=== PATIENT | female | born 1970 | race Caucasian/White ===

== ENCOUNTER → 2017-05-30 | Outpatient (CLI) | payer BC ==
[2017-05-30 09:27] LABS: Basophils # (A) 0.1 k/uL (0-0.2); Basophils % (A) 1 %; Eosinophils # (A) 0.4 k/uL (0-0.7); Eosinophils % (A) 6 %; HCT 37.2 % (34.0-46.0); HGB 12.5 gm/dL (11.4-16.0); Lymphocytes # (A) 1.6 k/uL (1.0-4.8); Lymphocytes % (A) 24 %; MCH 32.5 pg (25.0-35.0); MCHC 33.6 g/dL (31.0-37.0); Monocytes # (A) 0.4 k/uL (0-1.0); Monocytes % (A) 6 %; Neutrophils # (A) 4.2 k/uL (1.3-7.7); Neutrophils % (A) 62 %; Platelet Count 333 k/uL (150-450); RBC 3.84 m/uL (3.80-5.40); RDW 12.5 % (11.5-15.5); WBC 6.8 k/uL (3.8-10.6)
[2017-05-30 09:36] LABS: ALT 19 U/L (9-52); AST 22 U/L (14-36); Albumin 4.1 g/dL (3.5-5.0); Alkaline Phosphatase 96 U/L (38-126); Anion Gap 8 mmol/L; Blood Urea Nitrogen 10 mg/dL (7-17); Calcium 9.2 mg/dL (8.4-10.2); Carbon Dioxide 28 mmol/L (22-30); Chloride 106 mmol/L (98-107); Cholesterol 233 mg/dL (<200); Glucose 84 mg/dL (74-99); HDL Cholesterol 50 mg/dL (40-60); LDL Cholesterol,Calculated 145 mg/dL (0-99); Potassium 4.2 mmol/L (3.5-5.1); Sodium 142 mmol/L (137-145); Total Bilirubin 0.5 mg/dL (0.2-1.3); Total Protein 6.8 g/dL (6.3-8.2); Triglycerides 191 mg/dL (<150)
[2017-05-30 09:51] LABS: T4, Free (Free Thyroxine) 1.38 ng/dL (0.78-2.19)
== END | disposition home or self-care (01) ==
LOC: LABWHC1 08:50
PROVIDERS: ATTEND Family Medicine
DX: Z00.00 Encounter for general adult medical examination without abnormal findings (principal)
CPT/HCPCS: 36415; 80053; 80061; 82306; 84439; 84443; 85025

== ENCOUNTER → 2017-08-09 | Outpatient (CLI) | payer BC ==
[2017-08-09 10:23] LABS: Basophils # (A) 0.1 k/uL (0-0.2); Basophils % (A) 1 %; Eosinophils # (A) 0.3 k/uL (0-0.7); Eosinophils % (A) 5 %; HGB 11.9 gm/dL (11.4-16.0); Lymphocytes # (A) 1.5 k/uL (1.0-4.8); Lymphocytes % (A) 27 %; MCH 31.6 pg (25.0-35.0); MCHC 33.1 g/dL (31.0-37.0); MCV 95.5 fL (80.0-100.0); Mean Platelet Volume 6.7; Monocytes # (A) 0.3 k/uL (0-1.0); Monocytes % (A) 6 %; Neutrophils # (A) 3.1 k/uL (1.3-7.7); Neutrophils % (A) 58 %; Platelet Count 364 k/uL (150-450); RBC 3.76 m/uL (3.80-5.40); RDW 13.1 % (11.5-15.5); WBC 5.4 k/uL (3.8-10.6)
[2017-08-09 10:52] LABS: ALT 18 U/L (9-52); AST 26 U/L (14-36); Cholesterol 238 mg/dL (<200); HDL Cholesterol 58 mg/dL (40-60); LDL Cholesterol,Calculated 153 mg/dL (0-99); Triglycerides 134 mg/dL (<150)
== END | disposition home or self-care (01) ==
LOC: LABWHC1 09:30
PROVIDERS: ATTEND Physician Assistant Medical
DX: L70.0 Acne vulgaris (principal); D23.9 Other benign neoplasm of skin, unspecified; L30.8 Other specified dermatitis
CPT/HCPCS: 36415; 80061; 83001; 83002; 84450; 84460; 85025

== ENCOUNTER → 2017-09-11 | Outpatient (CLI) | payer BC ==
[2017-09-11 09:48] LABS: HCG,Quantitative Serum <2.4 mIU/mL
[2017-09-11 10:03] LABS: ALT 23 U/L (9-52); AST 24 U/L (14-36); Cholesterol 265 mg/dL (<200)
[2017-09-11 11:03] LABS: Triglycerides 195 mg/dL (<150)
== END | disposition home or self-care (01) ==
LOC: LABWHC1 08:42
PROVIDERS: ATTEND Physician Assistant Medical
DX: L70.0 Acne vulgaris (principal)
CPT/HCPCS: 36415; 82465; 84450; 84460; 84478; 84702

== ENCOUNTER → 2017-10-22 | Outpatient (CLI) | payer BC ==
--- NOTE | 2017-10-22 16:50 | BD ---
EXAMINATION TYPE: Axial Bone Density DATE OF EXAM: 10/22/2017 COMPARISON: NONE CLINICAL HISTORY: 47-year-old male osteoporosis screening Height: 5 FT 6 1/2 IN Weight: 185 FRAX RISK QUESTIONS: History of Fracture in Adulthood: YES Secondary Osteoporosis: 3. Menopause before 45: TOTAL HYST AGE 27 Current Tobacco Use: YES RISK FACTORS HISTORY OF: Family History of Osteoporosis: MOTHER Active: YES Postmenopausal woman: TOTAL HYST AGE 27 If Premenopausal, do you have irregular periods: Take estrogen and/or progesterone medications: TOOK FROM AGE 27 -45 How lon YEARS MEDICATIONS: Thyroid Medications: YES Which medication: LEVOTHYROXINE How Lon YEARS Additional Medications: PROZAC,LEVOTHYROXINE, XANAX, ACCUTANE Additional History: EXAM MEASUREMENTS: Bone mineral densitometry was performed using the [employer]. Bone mineral density as measured about the Lumbar spine is: ----- L1-L4(G/cm2): 1.106 T Score Values are as follows: ----- L2: -1.3 ----- L3: -0.4 ----- L4: -0.1 ----- L1-L4: -0.6 [facility] Bone mineral density about the R hip (g/cm2): 0.998 Bone mineral density about the L hip (g/cm2): 1.029 T Score values are as follows: -----R Neck: -0.3 -----L Neck: -0.1 -----R Total: 0.1 -----L Total: 0.4 [facility] IMPRESSION: Normal (Values between +1 and -1 indicate normal bone mass). Consider repeating this study in 5 year s or sooner if there is some new clinical indication. NOTE: T-SCORE=SD OF THE YOUNG ADULT MEAN.
--- NOTE | 2017-10-24 11:01 | MM ---
Reason for exam: screening (asymptomatic). Last mammogram was performed 2 years and 9 months ago. History: Patient is nulliparous. Took estrogen for 18 years. Physical Findings: A clinical breast exam by your physician is recommended on an annual basis and results should be correlated with mammographic findings. MG Screening Mammo w CAD Bilateral CC and MLO view(s) were taken. Prior study comparison: January 21, 2015, mammogram, performed at [facility]. November 10, 2013, mammogram, performed at [facility]. The breast tissue is almost entirely fat. Finding: There are typically benign diffuse/scattered calcifications in both breasts. No suspicious abnormality. No significant changes in finding since January 21, 2015 and November 10, 2013. ASSESSMENT: Benign, BI-RAD 2 RECOMMENDATION: Routine screening mammogram of both breasts in 1 year.
== END | disposition home or self-care (01) ==
LOC: RADMAMWWP 07:35
PROVIDERS: ATTEND Obstetrics & Gynecology
DX: Z12.31 Encounter for screening mammogram for malignant neoplasm of breast (principal); Z13.820 Encounter for screening for osteoporosis
CPT/HCPCS: 77067; 77080

== ENCOUNTER → 2018-09-02 | Outpatient (CLI) | payer OTHER ==
[2018-09-02 16:08] LABS: T4, Free (Free Thyroxine) 0.6 ng/dL (0.80-1.80)
== END | disposition home or self-care (01) ==
LOC: LABWHC1 10:25
PROVIDERS: ATTEND Internal Medicine
DX: E06.3 Autoimmune thyroiditis (principal)
CPT/HCPCS: 36415; 84439; 84443

== ENCOUNTER 2019-12-10 10:40 | Inpatient (IN) | payer BC, OTHER ==
[2019-12-10] MEDS ORDERED: ALPRAZolam 0.25 MG TAB PO STA (14:01)
[2019-12-10] MEDS ORDERED: IPRATROPIUM-ALBUTEROL 3 ML NEB INHALATION PRN (15:33)
[2019-12-10] MEDS ORDERED: ACETAMINOPHEN TAB 325 MG TAB PO PRN (15:37)
[2019-12-10] MEDS ORDERED: ONDANSETRON 4 MG/2 ML VIAL IVP PRN (15:37)
[2019-12-10] MEDS: IPRATROPIUM-ALBUTEROL 3 ML NEB INHALATION SCH ×2 (15:53→19:54)
[2019-12-10] MEDS ORDERED: SYMBICORT 80-4.5 MCG INHALER INHALATION SCH (16:00)
[2019-12-10 16:38] LABS: Basophils # (A) 0.1 k/uL (0-0.2); Basophils % (A) 1 %; Eosinophils # (A) 0.2 k/uL (0-0.7); Eosinophils % (A) 2 %; HCT 38.4 % (34.0-46.0); HGB 12.3 gm/dL (11.4-16.0); Lymphocytes # (A) 2.8 k/uL (1.0-4.8); Lymphocytes % (A) 37 %; MCH 31.3 pg (25.0-35.0); MCHC 32.1 g/dL (31.0-37.0); MCV 97.3 fL (80.0-100.0); Mean Platelet Volume 6.9; Monocytes # (A) 0.4 k/uL (0-1.0); Monocytes % (A) 5 %; Neutrophils # (A) 3.9 k/uL (1.3-7.7); Neutrophils % (A) 51 %; Platelet Count 354 k/uL (150-450); RBC 3.94 m/uL (3.80-5.40); RDW 12.9 % (11.5-15.5); WBC 7.6 k/uL (3.8-10.6)
[2019-12-10 16:46] LABS: ALT 21 U/L (4-34); AST 32 U/L (14-36); African American GFR (CKD) >90 (>60 ml/min/1.73 sqM); Albumin 4.2 g/dL (3.5-5.0); Alkaline Phosphatase 117 U/L (38-126); Anion Gap 8 mmol/L; Blood Urea Nitrogen 5 mg/dL (7-17); Calcium 9.1 mg/dL (8.4-10.2); Carbon Dioxide 23 mmol/L (22-30); Chloride 104 mmol/L (98-107); Glucose 95 mg/dL (74-99); Non-African American GFR(CKD) >90 (>60 ml/min/1.73 sqM); Potassium 3.7 mmol/L (3.5-5.1); Sodium 135 mmol/L (137-145); Total Bilirubin 0.5 mg/dL (0.2-1.3); Total Protein 6.9 g/dL (6.3-8.2)
--- NOTE | 2019-12-10 16:47 | XR ---
EXAMINATION TYPE: XR chest 2V DATE OF EXAM: 12/10/2019 COMPARISON: NONE HISTORY: Cough and shortness of breath. TECHNIQUE: Frontal and lateral views of the chest are obtained. FINDINGS: There is no focal air space opacity, pleural effusion, or pneumothorax seen. The cardiac silhouette size is within normal limits. The osseous structures are intact. Few air-fluid levels in the visualized anterior bowel loops in the upper to mid abdomen on lateral view, nonspecific finding . IMPRESSION: No acute cardiopulmonary process.
[2019-12-10] MEDS ORDERED: AZITHROMYCIN 500 MG in SODIUM CHLORIDE 0.9% 250 ML IVPB SCH (17:00)
[2019-12-10] MEDS: NICOTINE 14MG/24HR PATCH TRANSDERM SCH (17:03)
[2019-12-10] MEDS: PANTOPRAZOLE 40 MG/10 ML VIAL IVP SCH (17:13)
[2019-12-10] MEDS: SODIUM CHLORIDE 0.9% 1,000 ML IV SCH (17:22)
[2019-12-10] MEDS: INSULIN ASPART (NovoLOG) 100 UNIT/ML VIAL SQ SCH ×2 (17:24→20:50)
[2019-12-10] MEDS: methylPREDNISolone SOD SUCCI 125 MG/2 ML VIAL IV SCH ×2 (18:27→23:42)
[2019-12-10] MEDS ORDERED: RX INFO: IV CONTRAST WAS GIVEN 1 EACH MISC MISCELLANE PRN (19:01)
[2019-12-10] MEDS ORDERED: ALPRAZolam 0.25 MG TAB PO PRN (19:02)
[2019-12-10] MEDS: PIPERACILLIN-TAZOBACTAM 3.375 GM in SODIUM CHLORIDE 0.9% 100 ML IVPB SCH (19:51)
[2019-12-10] MEDS: SYMBICORT 160-4.5 MCG INHALER INHALATION SCH (19:54)
[2019-12-10 20:44] LABS: Glucose,Whole Blood 150 mg/dL (75-99)
--- NOTE | 2019-12-10 21:42 | CT ---
"EXAMINATION TYPE: CT chest w con DATE OF EXAM: 12/10/2019 COMPARISON: Chest x-ray earlier today. HISTORY: dyspnea CT DLP: 490.4 mGycm. Automated Exposure Control for Dose Reduction was Utilized. TECHNIQUE: CT scan of the thorax is performed following with IV Contrast, patient injected with 100 mL of Isovue 300. FINDINGS: LUNGS: There are multifocal areas of groundglass opacity seen bilaterally predominantly in a peripher al distribution from referenced 2.3 cm area anterior left upper lobe axial image 18 and 1.7 cm area o f peripheral right upper lobe axial image 14. Some areas of involvement in the superior aspect of the lingula and right middle lobe are present for reference axial image 33. Findings not well seen on ch est x-ray. No pleural effusion or pneumothorax seen bilaterally. There is no suspicious nodules or ma sses. The tracheobronchial tree is patent. MEDIASTINUM: There are no greater than 1 cm hilar or mediastinal lymph nodes. No cardiomegaly or pe ricardial effusion is seen. OTHER: No additional significant abnormality is seen. IMPRESSION: Multifocal groundglass opacities upper to mid lung bilaterally predominantly peripheral i n distribution worrisome for atypical infection such as covid-19 infection in the current environment . Above results discussed with patient's nurse via telephone at time of dictation. Nurse said patient h ad initial negative study. Consider repeat test due to increased suspicion on CT. A [place] level critical message alert has been initiated for Jayden Louie MD via the [employer] 0 | Critical Results System on 12/10/2019 9:39 PM. This message alert has been sent to Jayden Louie MD via the preferences provided by the clinician for the receipt of Radiology Critical Findings. Mess age ID [id number]."
[2019-12-11] MEDS: PIPERACILLIN-TAZOBACTAM 3.375 GM in SODIUM CHLORIDE 0.9% 100 ML IVPB SCH ×3 (02:23→17:21)
[2019-12-11] MEDS: methylPREDNISolone SOD SUCCI 125 MG/2 ML VIAL IV SCH ×3 (05:46→17:20)
[2019-12-11 07:41] LABS: Glucose,Whole Blood 160 mg/dL (75-99)
[2019-12-11] MEDS: DEXMETHYLPHENIDATE HCL 40 MG PO SCH (08:13)
[2019-12-11] MEDS: lamoTRIgine 100 MG TAB PO SCH (08:18)
[2019-12-11] MEDS: SPIRONOLACTONE 25 MG TAB PO SCH (08:19)
[2019-12-11] MEDS: PANTOPRAZOLE 40 MG/10 ML VIAL IVP SCH (08:19)
[2019-12-11] MEDS: FLUoxetine HCL 20 MG CAP PO SCH (08:19)
[2019-12-11] MEDS: INSULIN ASPART (NovoLOG) 100 UNIT/ML VIAL SQ SCH ×4 (08:20→21:48)
[2019-12-11] MEDS: IPRATROPIUM-ALBUTEROL 3 ML NEB INHALATION SCH ×4 (08:55→21:35)
[2019-12-11] MEDS: SYMBICORT 160-4.5 MCG INHALER INHALATION SCH ×2 (08:55→21:35)
[2019-12-11] MEDS: THYROID, PORK 30 MG TAB PO SCH ×2 (09:22)
[2019-12-11] MEDS: NICOTINE 14MG/24HR PATCH TRANSDERM SCH (09:23)
[2019-12-11 11:31] LABS: Glucose,Whole Blood 142 mg/dL (75-99)
[2019-12-11] MEDS: SODIUM CHLORIDE 0.9% 1,000 ML IV SCH (12:17)
[2019-12-11 16:43] LABS: Glucose,Whole Blood 132 mg/dL (75-99)
[2019-12-11] MEDS ORDERED: AZITHROMYCIN 500 MG TAB PO SCH (17:00)
--- NOTE | 2019-12-11 18:46 | P.CNPUL ---
History of Present Illness Consult date: 12/11/19 Reason for consult: dyspnea, cough Chief complaint: Ongoing shortness of breath with cough for last few days History of present illness: This is a 49-year-old female history of smoking the past patient admitted from primary care office with the increase in respiratory complaint, ongoing cough is present mostly nonproductive, patient has significant history of depression and vitamin D deficiency along with anxiety disorder she cannot recall any coitus exposure however chest x-ray has been unremarkable but her computed tomography scan positive for multifocal areas of groundglass attenuation predominantly in the frontal distribution more on the left side compared to right side, currently patient is being treated with IV steroids breathing treatment and broad-spectrum antibiotics with IV Zosyn infectious disease on consult there is a high suspicion of coronary 19 pneumonia however test results are pending Review of Systems All systems: negative Past Medical History Past Medical History: COPD, Osteoarthritis (OA) Additional Past Medical History / Comment(s): shots in hands for arthritis History of Any Multi-Drug Resistant Organisms: None Reported Past Surgical History: Hysterectomy Additional Past Anesthesia/Blood Transfusion Reaction / Comment(s): got too much anesthetic with surgery once. per pt Past Psychological History: ADD/ADHD, Anxiety, Depression Additional Psychological History / Comment(s): ? bipolar sees counselor Smoking Status: Current every day smoker Past Alcohol Use History: Rare Past Drug Use History: None Reported - Past Family History Mother Family Medical History: Cancer, CVA/TIA, Hypertension Additional Family Medical History / Comment(s): open heart Brother(s) Family Medical History: Cancer Additional Family Medical History / Comment(s): lung with brain mets in remission Father Family Medical History: Congestive Heart Failure (CHF), COPD Additional Family Medical History / Comment(s): emphysema Medications and Allergies Home Medications Medication Instructions Recorded Confirmed Type ALPRAZolam [Xanax] 0.25 mg PO DAILY PRN 12/10/19 12/10/19 History Cholecalciferol [Vitamin D3 (25 1,000 unit PO DAILY 12/10/19 12/10/19 History Mcg = 1000 Iu)] Dexmethylphenidate HCl 40 mg PO DAILY 12/10/19 12/10/19 History [Dexmethylphenidate HCl ER] FLUoxetine HCL [Sarafem] 60 mg PO DAILY 12/10/19 12/10/19 History Spironolactone 25 mg PO DAILY 12/10/19 12/10/19 History Thyroid,Pork [[place] Thyroid] 15 mg PO DAILY 12/10/19 12/10/19 History Thyroid,Pork [[place] Thyroid] 60 mg PO DAILY 12/10/19 12/10/19 History Vitamin E 1,000 unit PO DAILY 12/10/19 12/10/19 History lamoTRIgine 200 mg PO DAILY 12/10/19 12/10/19 History Allergies Allergy/AdvReac Type Severity Reaction Status Date / Time No Known Allergies Allergy Verified 12/10/19 15:59 Physical Exam Vitals: Vital Signs Temp Pulse Pulse Resp BP Pulse Ox 12/11/19 16:32 77 12/11/19 16:23 77 12/11/19 14:48 98.4 F 87 18 95/59 93 L 12/11/19 12:47 68 12/11/19 12:34 72 12/11/19 09:13 68 12/11/19 08:56 68 12/11/19 08:00 16 12/11/19 07:00 97.9 F 63 16 109/74 96 12/11/19 01:00 97.7 F 73 20 104/64 93 L 12/10/19 20:12 98.4 F 84 16 105/70 95 12/10/19 20:05 78 16 12/10/19 19:54 80 16 Intake and Output 12/11/19 12/11/19 12/11/19 06:59 14:59 22:59 Other: Voiding Method Toilet Toilet # Voids 1 2 - Constitutional General appearance: cooperative, mild distress - EENT Ears: bilateral: normal - Neck Neck: normal ROM Carotids: bilateral: upstroke normal - Respiratory Respiratory: bilateral: CTA - Cardiovascular Rhythm: regular Heart sounds: normal: S1, S2 - Gastrointestinal General gastrointestinal: decreased bowel sounds - Neurologic Neurologic: CNII-XII intact - Musculoskeletal Musculoskeletal: gait normal, generalized weakness, strength equal bilaterally - Psychiatric Psychiatric: A&O x's 3, appropriate affect, intact judgment & insight Results - Laboratory Findings CBC and BMP: 12/10/19 16:15 12/10/19 16:15 Abnormal lab findings: Abnormal Labs 12/10/19 12/10/19 12/11/19 16:15 20:43 07:38 Sodium 135 L BUN 5 L POC Glucose (mg/dL) 150 H 160 H 12/11/19 12/11/19 11:28 16:41 Sodium BUN POC Glucose (mg/dL) 142 H 132 H - Diagnostic Findings Chest x-ray: report reviewed, image reviewed CT scan - chest: report reviewed, image reviewed Assessment and Plan Assessment: Bilateral interstitial pneumonia versus atypical pneumonia Covid 19 pneumonia cannot be excluded Generalized anxiety disorder Hypothyroidism Plan: Continue antibiotics Continue breathing treatment IV steroids Follow-up on Covid 19 test results ID consultation Follow and observe closely with respiratory and droplet precautions Time with Patient: Greater than 30
[2019-12-11 21:33] LABS: Glucose,Whole Blood 140 mg/dL (75-99)
--- NOTE | 2019-12-11 22:54 | PN ---
PROGRESS NOTE This is a 49-year-old white female with shortness of breath, cough, failed two antibiotics as an outpatient and multiple steroids. CT scan shows interstitial lung disease of unclear etiology. IV Zosyn and steroids are being given. She had a recent COVID test which was negative. Another COVID test is pending. Past medical history is COPD, osteoarthritis, hysterectomy, ADD, anxiety, depression. Current everyday smoker. Lungs show wheezes x4. Scattered rhonchi. CARDIOVASCULAR: S1, S2. Abdomen is soft. PSYCH: Fair mood and affect. VITAL SIGNS: Blood pressure 100 to 110 over 60s to 70s. O2 is 93 to 96, temperature 97 to 99, pulse 60 to 72. ASSESSMENT: 1. Community-acquired pneumonia; failed outpatient antibiotics x2. Rule out COVID. 2. Chronic obstructive pulmonary disease exacerbation. 3. Long-standing history of smoking. 4. Generalized anxiety. 5. Hypothyroidism. Wait for COVID test. Continue with Zosyn, steroids. MMODL / IJN: [id number] /
[2019-12-12] MEDS: methylPREDNISolone SOD SUCCI 125 MG/2 ML VIAL IV SCH ×3 (01:04→11:47)
[2019-12-12] MEDS: PIPERACILLIN-TAZOBACTAM 3.375 GM in SODIUM CHLORIDE 0.9% 100 ML IVPB SCH ×2 (01:05→08:16)
[2019-12-12 06:52] LABS: Glucose,Whole Blood 154 mg/dL (75-99)
[2019-12-12] MEDS ORDERED: PANTOPRAZOLE 40 MG TABLET PO SCH (07:30)
[2019-12-12] MEDS: SPIRONOLACTONE 25 MG TAB PO SCH (07:40)
[2019-12-12] MEDS: lamoTRIgine 100 MG TAB PO SCH (07:40)
[2019-12-12] MEDS: FLUoxetine HCL 20 MG CAP PO SCH (07:40)
[2019-12-12] MEDS: DEXMETHYLPHENIDATE HCL 40 MG PO SCH (07:41)
[2019-12-12] MEDS: INSULIN ASPART (NovoLOG) 100 UNIT/ML VIAL SQ SCH ×2 (07:41→11:47)
[2019-12-12] MEDS: THYROID, PORK 30 MG TAB PO SCH ×2 (07:42)
[2019-12-12] MEDS: NICOTINE 14MG/24HR PATCH TRANSDERM SCH (07:44)
[2019-12-12] MEDS: SODIUM CHLORIDE 0.9% 1,000 ML IV SCH (08:16)
[2019-12-12] MEDS: IPRATROPIUM-ALBUTEROL 3 ML NEB INHALATION SCH ×2 (08:32→12:12)
[2019-12-12] MEDS: SYMBICORT 160-4.5 MCG INHALER INHALATION SCH (08:32)
[2019-12-12] MEDS ORDERED: LEVOFLOXACIN 750 MG TAB PO SCH (09:00)
[2019-12-12 10:10] LABS: Basophils % (A) 0 %; Eosinophils % (A) 0 %; HCT 35.3 % (34.0-46.0); HGB 11.2 gm/dL (11.4-16.0); Lymphocytes # (A) 0.7 k/uL (1.0-4.8); Lymphocytes % (A) 3 %; MCH 31.5 pg (25.0-35.0); MCHC 31.8 g/dL (31.0-37.0); MCV 99.2 fL (80.0-100.0); Mean Platelet Volume 7.9; Monocytes # (A) 0.6 k/uL (0-1.0); Monocytes % (A) 3 %; Neutrophils # (A) 18.3 k/uL (1.3-7.7); Neutrophils % (A) 93 %; Platelet Count 325 k/uL (150-450); RBC 3.56 m/uL (3.80-5.40); RDW 13.3 % (11.5-15.5); WBC 19.7 k/uL (3.8-10.6)
[2019-12-12 10:17] LABS: ALT 15 U/L (4-34); AST 21 U/L (14-36); African American GFR (CKD) >90 (>60 ml/min/1.73 sqM); Albumin 3.6 g/dL (3.5-5.0); Alkaline Phosphatase 98 U/L (38-126); Anion Gap 7 mmol/L; Blood Urea Nitrogen 12 mg/dL (7-17); C Reactive Protein 13.4 mg/L (<10.0); Calcium 8.8 mg/dL (8.4-10.2); Carbon Dioxide 22 mmol/L (22-30); Chloride 110 mmol/L (98-107); Glucose 115 mg/dL (74-99); Non-African American GFR(CKD) >90 (>60 ml/min/1.73 sqM); Sodium 139 mmol/L (137-145); Total Bilirubin 0.3 mg/dL (0.2-1.3); Total Protein 6.1 g/dL (6.3-8.2)
--- NOTE | 2019-12-12 10:59 | P.PN ---
Subjective Progress Note Date: 12/12/19 Principal diagnosis: Bilateral interstitial pneumonia versus atypical pneumonia Covid 19 pneumonia cannot be excluded Generalized anxiety disorder Hypothyroidism 12/12/2019, patient seen eval examined during on's labs reviewed medications reviewed white cell count is up due to IV steroids respiratory status is stable patient room air breathing comfortably intermittent cough is present, This is a 49-year-old female history of smoking the past patient admitted from primary care office with the increase in respiratory complaint, ongoing cough is present mostly nonproductive, patient has significant history of depression and vitamin D deficiency along with anxiety disorder she cannot recall any coitus exposure however chest x-ray has been unremarkable but her computed tomography scan positive for multifocal areas of groundglass attenuation predominantly in the frontal distribution more on the left side compared to right side, currently patient is being treated with IV steroids breathing treatment and broad-spectrum antibiotics with IV Zosyn infectious disease on consult there is a high suspicion of coronary 19 pneumonia however test results are pending Objective - Vital Signs Vital signs: Vital Signs Temp 98.3 F 12/12/19 07:00 Pulse 84 12/12/19 08:48 Resp 17 12/12/19 08:00 BP 101/59 12/12/19 07:00 Pulse Ox 93 L 12/12/19 07:00 Intake & Output 12/11/19 12/12/19 12/12/19 18:59 06:59 18:59 Intake Total 100 Balance 100 Intake: Oral 100 Other: Voiding Method Toilet Toilet Toilet # Voids 2 1 - Exam - Constitutional General appearance: cooperative, mild distress - EENT Ears: bilateral: normal - Neck Neck: normal ROM Carotids: bilateral: upstroke normal - Respiratory Respiratory: bilateral: CTA - Cardiovascular Rhythm: regular Heart sounds: normal: S1, S2 - Gastrointestinal General gastrointestinal: decreased bowel sounds - Neurologic Neurologic: CNII-XII intact - Musculoskeletal Musculoskeletal: gait normal, generalized weakness, strength equal bilaterally - Psychiatric Psychiatric: A&O x's 3, appropriate affect, intact judgment & insight - Labs CBC & Chem 7: 12/12/19 07:40 12/12/19 07:40 Labs: Abnormal Lab Results - Last 24 Hours (Table) 12/11/19 12/11/19 12/11/19 Range/Units 11:28 16:41 21:30 WBC (3.8-10.6) k/uL RBC (3.80-5.40) m/uL Hgb (11.4-16.0) gm/dL Neutrophils # (1.3-7.7) k/uL Lymphocytes # (1.0-4.8) k/uL Chloride (98-107) mmol/L Glucose (74-99) mg/dL POC Glucose (mg/dL) 142 H 132 H 140 H (75-99) mg/dL C-Reactive Protein (<10.0) mg/L Total Protein (6.3-8.2) g/dL 12/12/19 12/12/19 12/12/19 Range/Units 06:50 07:40 07:40 WBC 19.7 H (3.8-10.6) k/uL RBC 3.56 L (3.80-5.40) m/uL Hgb 11.2 L (11.4-16.0) gm/dL Neutrophils # 18.3 H (1.3-7.7) k/uL Lymphocytes # 0.7 L (1.0-4.8) k/uL Chloride 110 H (98-107) mmol/L Glucose 115 H (74-99) mg/dL POC Glucose (mg/dL) 154 H (75-99) mg/dL C-Reactive Protein 13.4 H (<10.0) mg/L Total Protein 6.1 L (6.3-8.2) g/dL Assessment and Plan Assessment: Bilateral interstitial pneumonia versus atypical pneumonia Covid 19 pneumonia test is negative Generalized anxiety disorder Hypothyroidism Smoking and nicotine use Plan: Continue antibiotics, patient can be discharged home on oral Levaquin with tapering Medrol Dosepak Continue breathing treatment Follow and observe closely with respiratory and droplet precautions Smoking cessation counseling advised at length Time with Patient: Greater than 30
[2019-12-12 11:21] LABS: Glucose,Whole Blood 149 mg/dL (75-99)
[2019-12-12 13:34] VITALS: BP 93/58; PULSE 90; RESP 16; TEMP 98.2
--- NOTE | 2019-12-12 15:32 | P.CONS ---
History of Present Illness - Reason for Consult Consult date: 12/11/19 Pneumonia Requesting physician: Jayden Louie - Chief Complaint Shortness of breath and cough x 3 weeks - History of Present Illness Patient is 49-year-old female with a past medical history significant for COPD, seemed to have problem with cough that has been going on for almost 3 weeks now the patient described her comfortable mostly dry in nature moderate in tensity with occasional sputum production which is mostly whitish denies any hemoptysis or any pleuritic chest pain patient denies high-grade fever however did have some chills and no URI symptoms no nausea no vomiting no abdominal pain no diarrhea patient has been treated with initially with an oral amoxicillin without any improvement subsequently has been treated with Augmentin and a steroid pack did not have any improvement subsequently the patient has been admitted directly to the hospital concern for possible Covid 19 infection, patient of presentation hospital was afebrile and no fever has been recorded in the hospital, the patient did have a normal white count with no lymphopenia live r enzymes are normal, patient did have a chest x-ray that was reported negative for any acute infiltrate, patient did have CT of the chest which was suggestive of multifocal groundglass opacities upper to mid lung bilaterally predominantly peripheral with concern for atypical infection, infectious disease was consulted for further management Review of Systems Positive point has been mentioned in the HPI rest of the systems are negative Past Medical History Past Medical History: COPD, Osteoarthritis (OA) Additional Past Medical History / Comment(s): shots in hands for arthritis History of Any Multi-Drug Resistant Organisms: None Reported Past Surgical History: Hysterectomy Additional Past Anesthesia/Blood Transfusion Reaction / Comm: got too much anesthetic with surgery once. per pt Past Psychological History: ADD/ADHD, Anxiety, Depression Additional Psychological History / Comment(s): ? bipolar sees counselor Smoking Status: Current every day smoker Past Alcohol Use History: Rare Past Drug Use History: None Reported - Past Family History Mother Family Medical History: Cancer, CVA/TIA, Hypertension Additional Family Medical History / Comment(s): open heart Brother(s) Family Medical History: Cancer Additional Family Medical History / Comment(s): lung with brain mets in remission Father Family Medical History: Congestive Heart Failure (CHF), COPD Additional Family Medical History / Comment(s): emphysema Medications and Allergies Home Medications Medication Instructions Recorded Confirmed Type ALPRAZolam [Xanax] 0.25 mg PO DAILY PRN 12/10/19 12/10/19 History Cholecalciferol [Vitamin D3 (25 1,000 unit PO DAILY 12/10/19 12/10/19 History Mcg = 1000 Iu)] Dexmethylphenidate HCl 40 mg PO DAILY 12/10/19 12/10/19 History [Dexmethylphenidate HCl ER] FLUoxetine HCL [Sarafem] 60 mg PO DAILY 12/10/19 12/10/19 History Spironolactone 25 mg PO DAILY 12/10/19 12/10/19 History Thyroid,Pork [[place] Thyroid] 15 mg PO DAILY 12/10/19 12/10/19 History Thyroid,Pork [[place] Thyroid] 60 mg PO DAILY 12/10/19 12/10/19 History Vitamin E 1,000 unit PO DAILY 12/10/19 12/10/19 History lamoTRIgine 200 mg PO DAILY 12/10/19 12/10/19 History Allergies Allergy/AdvReac Type Severity Reaction Status Date / Time No Known Allergies Allergy Verified 12/10/19 15:59 Physical Exam Vitals: Vital Signs Temp Pulse Pulse Resp BP Pulse Ox 12/11/19 16:32 77 12/11/19 16:23 77 12/11/19 14:48 98.4 F 87 18 95/59 93 L 12/11/19 12:47 68 12/11/19 12:34 72 12/11/19 09:13 68 12/11/19 08:56 68 12/11/19 08:00 16 12/11/19 07:00 97.9 F 63 16 109/74 96 12/11/19 01:00 97.7 F 73 20 104/64 93 L 12/10/19 20:12 98.4 F 84 16 105/70 95 12/10/19 20:05 78 16 12/10/19 19:54 80 16 Intake and Output 12/11/19 12/11/19 12/11/19 06:59 14:59 22:59 Other: Voiding Method Toilet Toilet # Voids 1 2 GENERAL DESCRIPTION: Middle-aged female lying in bed, no distress. No tachypnea or accessory muscle of respiration use. HEENT: Shows Pallor , no scleral icterus. Oral mucous membrane is dry. No pharyngeal erythema or thrush NECK: Trachea central, no thyromegaly. LUNGS: Unlabored breathing. Decreased intensity of breath sounds. No wheeze or crackle. HEART: S1, S2, regular rate and rhythm. No loud murmur ABDOMEN: Soft, no tenderness , guarding or rigidity, no organomegaly EXTREMITIES: No edema of feet. SKIN: No rash, no masses palpable. NEUROLOGICAL: The patient is awake, alert, oriented x3, mood and affect normal. Results CBC & Chem 7: 12/10/19 16:15 12/10/19 16:15 Labs: Abnormal Lab Results - Last 24 Hours (Table) 12/10/19 12/11/19 12/11/19 Range/Units 20:43 07:38 11:28 POC Glucose (mg/dL) 150 H 160 H 142 H (75-99) mg/dL 12/11/19 Range/Units 16:41 POC Glucose (mg/dL) 132 H (75-99) mg/dL Assessment and Plan Assessment: 1- patient being admitted to the hospital with chronic cough that has been going on for almost 3 weeks now with associated shortness of breath this patient to [address] angiography showed diffuse groundglass opacity susp icious for atypical infection with concern for possible viral pneumonia versus atypical bacterial or fungal infection, though clinically not behaving as Covid 19, with no fever no lymphopenia or elevated liver enzymes. (1) Pneumonia Current Visit: Yes Status: Acute Code(s): J18.9 - PNEUMONIA, UNSPECIFIED O RGANISM SNOMED Code(s): 623795237 Plan: 1- we will wait for the covid 19 test done finalized 2- we will check CRP, Procalcitonin , urine for Legionella antigen 3- empirically on Levaquin 750 mg by mouth daily We will follow on clinical condition and cultures to further adjust medication if needed Thank you for this consultation will follow this patient with you Time with Patient: Greater than 30
--- NOTE | 2019-12-12 18:08 | PN ---
PROGRESS NOTE DATE OF SERVICE: 12/12/2019 REASON FOR FOLLOWUP: Pneumonia and abnormal x-ray. INTERVAL HISTORY: The patient was seen on rounds this morning. The patient has been afebrile. The patient has been feeling much better. The patient's cough has decreased in intensity. The patient denies having any chest pain. No nausea, no vomiting, no abdominal pain or any diarrhea. PHYSICAL EXAMINATION: Blood pressure 101/59 with a pulse of 79, temperature 98.1. She is 93% on room air. General description is a middle-aged female up in the bed in no distress. RESPIRATORY SYSTEM: Unlabored breathing with decreased intensity of breath sounds. No wheeze. HEART: S1, S2. Regular rate and rhythm. ABDOMEN: Soft. No tenderness. LABS: Hemoglobin 11.8, white count 19.7, BUN of 12, creatinine 0.70. CRP is 13.4. pending. Hernandez PCR negative. DIAGNOSTIC IMPRESSION AND PLAN: Patient admitted to hospital with increasing shortness of breath and cough in this patient who did have abnormal CT with ground-glass opacity. Hernandez PCR is negative. Possible atypical bacterial pneumonia. Patient clinically responding to the oral Levaquin. That will be continued for another week to finish a course of therapy. Questions and concerns were answered. MMODL / IJN: [id number] /
--- NOTE | 2019-12-12 22:39 | DS ---
DISCHARGE SUMMARY DISCHARGE MEDICATION: 1. Medrol Dosepak, dispense one, use as directed. 2. Levaquin 500 daily for 7 days. 3. Nicotine patch 21 mg daily for a month, then go to 14 mg for a month, then 7 mg for the third month. 4. Pork [place] Thyroid 60 mg daily and 15 mg daily. 5. Spironolactone 25 mg daily. 6. Sarafem 60 mg daily. 7. Dexmethylphenidate ER 40 mg daily. 8. Vitamin D3 1000 daily. 9. Xanax 0.25 mg daily. 10.Nicotine patch daily. 11.Levaquin as mentioned above. CONDITION: Stable. PROGNOSIS: Guarded. Ambulate as tolerated. DISCHARGE DIAGNOSES: 1. Atypical pneumonia. COVID ruled out. 2. Chronic obstructive pulmonary disease exacerbation. 3. Tracheobronchitis, failed outpatient treatment. 4. Hypothyroidism. 5. Depression. 6. PCOS. 7. Anxiety. 8. Chronic obstructive pulmonary disease and nicotine addiction. 9. Attention deficit disorder. The patient was placed in the hospital after failing two antibiotics and steroids as an outpatient. Placed on IV antibiotic Zosyn. COVID was negative. She was treated with steroids and IV antibiotics for 2 to 3 days. She greatly improved. We switched to oral and she was discharged home per pulmonary and infectious disease recommendations. She will follow up as an outpatient in about a week. MMODL / IJN: [id number] /
== END 2019-12-12 15:21 | disposition home or self-care (01) | DRG 194 ==
LOC: 6PED 12:07 → 4SSUR 23:34
PROVIDERS: ADMIT Family Medicine; ATTEND Family Medicine
DX: J15.9 Unspecified bacterial pneumonia (principal); J44.0 Chronic obstructive pulmonary disease with (acute) lower respiratory infection; J44.1 Chronic obstructive pulmonary disease with (acute) exacerbation; Z20.828 Contact with and (suspected) exposure to other viral communicable diseases; F41.1 Generalized anxiety disorder; F32.9 Major depressive disorder, single episode, unspecified; E55.9 Vitamin D deficiency, unspecified; M19.90 Unspecified osteoarthritis, unspecified site; F17.200 Nicotine dependence, unspecified, uncomplicated; F90.9 Attention-deficit hyperactivity disorder, unspecified type; E03.9 Hypothyroidism, unspecified; E28.2 Polycystic ovarian syndrome; F98.8 Other specified behavioral and emotional disorders with onset usually occurring in childhood and adolescence; T38.0X5A Adverse effect of glucocorticoids and synthetic analogues, initial encounter; Z71.6 Tobacco abuse counseling; Z79.899 Other long term (current) drug therapy; Z90.710 Acquired absence of both cervix and uterus; Z82.49 Family history of ischemic heart disease and other diseases of the circulatory system; Z82.5 Family history of asthma and other chronic lower respiratory diseases; Z80.1 Family history of malignant neoplasm of trachea, bronchus and lung
CPT/HCPCS: 71046; 71260; 80053; 84443; 85025; 86140; 86738; 87449; 94640

== ENCOUNTER 2019-12-19 09:19 | Inpatient (IN) | payer BC ==
[2019-12-19] MEDS ORDERED: IPRATROPIUM-ALBUTEROL 3 ML NEB INHALATION PRN (13:28)
[2019-12-19] MEDS ORDERED: Potassium Replacement Protocol 1 EACH MISC MISCELLANE PRN (13:36)
[2019-12-19] MEDS ORDERED: Magnesium Replacement Protocol 1 EACH MISC MISCELLANE PRN (13:36)
[2019-12-19] MEDS: ACETAMINOPHEN TAB 325 MG TAB PO PRN ×2 (14:09→22:48)
[2019-12-19] MEDS: methylPREDNISolone SOD SUCCI 125 MG/2 ML VIAL IV SCH ×2 (14:10→17:09)
--- NOTE | 2019-12-19 14:11 | XR ---
EXAMINATION TYPE: XR chest 2V DATE OF EXAM: 12/19/2019 COMPARISON: Prior chest x-ray 12/10/2019 CT 12/10/2019 HISTORY: Pneumonia follow-up TECHNIQUE: Frontal and lateral views of the chest are obtained. FINDINGS: There is no pleural effusion or pneumothorax seen. Minimal patchy peripheral density is llamas spected. The cardiac silhouette size is within normal limits. The osseous structures are intact. IMPRESSION: Findings likely correlate to patient's prior CT, correlate for pneumonia
[2019-12-19] MEDS: PANTOPRAZOLE 40 MG/10 ML VIAL IVP SCH (14:17)
[2019-12-19] MEDS: AZITHROMYCIN 500 MG in SODIUM CHLORIDE 0.9% 250 ML IVPB SCH (14:23)
[2019-12-19] MEDS: ALPRAZolam 0.25 MG TAB PO PRN (14:29)
[2019-12-19 15:18] LABS: Basophils # (A) 0.1 k/uL (0-0.2); Basophils % (A) 1 %; Eosinophils # (A) 0.2 k/uL (0-0.7); Eosinophils % (A) 1 %; HCT 38.3 % (34.0-46.0); HGB 12.2 gm/dL (11.4-16.0); Lymphocytes % (A) 14 %; MCHC 31.9 g/dL (31.0-37.0); Monocytes # (A) 0.9 k/uL (0-1.0); Monocytes % (A) 6 %; Neutrophils # (A) 10.4 k/uL (1.3-7.7); Neutrophils % (A) 75 %; Platelet Count 326 k/uL (150-450); RBC 3.95 m/uL (3.80-5.40); RDW 12.6 % (11.5-15.5); WBC 13.9 k/uL (3.8-10.6)
[2019-12-19] MEDS: IPRATROPIUM-ALBUTEROL 3 ML NEB INHALATION SCH ×2 (16:01→20:27)
[2019-12-19 16:37] LABS: Glucose,Whole Blood 153 mg/dL (75-99)
[2019-12-19] MEDS: PIPERACILLIN-TAZOBACTAM 3.375 GM in SODIUM CHLORIDE 0.9% 100 ML IVPB SCH ×2 (17:25→22:49)
--- NOTE | 2019-12-19 17:32 | P.CNPUL ---
History of Present Illness Consult date: 12/19/19 Reason for consult: dyspnea, cough, pneumonia Chief complaint: Persistent pneumonia History of present illness: This is a 49-year-old female came into the hospital with problems of ongoing cough congestion shortness of breath going on for 4 weeks, patient was hospitalized last week for 3 days CAT scan shows groundglass attenuation of patchy area bilaterally she was discharged but continued to have symptoms ongoing came back into the hospital, she has been tested for cold weight which has been -2 times, she is currently being treated with IV Zithromax as well as the IV Zosyn, ongoing dry nonproductive cough is present which is being started on the Robitussin-DM cough medicine as well Review of Systems All systems: negative Past Medical History Past Medical History: COPD, Osteoarthritis (OA), Pneumonia Additional Past Medical History / Comment(s): shots in hands for arthritis History of Any Multi-Drug Resistant Organisms: None Reported Past Surgical History: Hysterectomy Past Anesthesia/Blood Transfusion Reactions: No Reported Reaction Additional Past Anesthesia/Blood Transfusion Reaction / Comment(s): got too much anesthetic with surgery once. per pt Past Psychological History: ADD/ADHD, Anxiety, Depression Additional Psychological History / Comment(s): bipolar sees counselor Smoking Status: Former smoker Past Alcohol Use History: Rare Additional Past Alcohol Use History / Comment(s): Stop smoking 9 days and start smoking in 1996 Past Drug Use History: None Reported - Past Family History Mother Family Medical History: Cancer, CVA/TIA, Hypertension Additional Family Medical History / Comment(s): open heart Brother(s) Family Medical History: Cancer Additional Family Medical History / Comment(s): lung with brain mets in remission Father Family Medical History: Congestive Heart Failure (CHF), COPD Additional Family Medical History / Comment(s): emphysema Medications and Allergies Home Medications Medication Instructions Recorded Confirmed Type ALPRAZolam [Xanax] 0.25 mg PO DAILY PRN 12/10/19 12/19/19 History Cholecalciferol [Vitamin D3 (25 1,000 unit PO DAILY 12/10/19 12/19/19 History Mcg = 1000 Iu)] Dexmethylphenidate HCl 40 mg PO DAILY 12/10/19 12/19/19 History [Dexmethylphenidate HCl ER] FLUoxetine HCL [Sarafem] 60 mg PO DAILY 12/10/19 12/19/19 History Spironolactone 25 mg PO DAILY 12/10/19 12/19/19 History Thyroid,Pork [[place] Thyroid] 15 mg PO DAILY 12/10/19 12/19/19 History Thyroid,Pork [[place] Thyroid] 60 mg PO DAILY 12/10/19 12/19/19 History Vitamin E 1,000 unit PO DAILY 12/10/19 12/19/19 History lamoTRIgine 200 mg PO DAILY 12/10/19 12/19/19 History Levofloxacin [Levaquin] 750 mg PO DAILY tab 12/12/19 12/19/19 Rx Nicotine 14Mg/24Hr Patch [Habitrol] 1 patch TRANSDERM DAILY patch 12/12/19 12/19/19 Rx Thyroid,Pork [[place] Thyroid] 15 mg PO MOWE 12/19/19 12/19/19 History Allergies Allergy/AdvReac Type Severity Reaction Status Date / Time No Known Allergies Allergy Verified 12/19/19 12:44 Physical Exam Vitals: Vital Signs Temp Pulse Pulse Resp BP Pulse Ox 12/19/19 16:57 18 12/19/19 16:14 86 12/19/19 16:06 84 12/19/19 14:28 98.1 F 84 18 114/81 100 12/19/19 12:00 98.3 F 88 18 137/91 98 Intake and Output 12/19/19 12/19/19 12/19/19 06:59 14:59 22:59 Intake Total 300 Balance 300 Intake: Oral 300 Other: Voiding Method Toilet # Voids 1 1 Weight 89.5 kg - Constitutional General appearance: average body habitus, cooperative, disheveled - EENT Eyes: EOMI, PERRLA Ears: bilateral: normal - Neck Neck: normal ROM Carotids: bilateral: upstroke normal Thyroid: bilateral: normal size - Respiratory Respiratory: bilateral: CTA - Cardiovascular Rhythm: regular Heart sounds: normal: S1, S2 - Gastrointestinal General gastrointestinal: normal bowel sounds - Neurologic Neurologic: CNII-XII intact - Musculoskeletal Musculoskeletal: gait normal, generalized weakness, strength equal bilaterally - Psychiatric Psychiatric: A&O x's 3, appropriate affect, intact judgment & insight Results - Laboratory Findings CBC and BMP: 12/19/19 14:43 Abnormal lab findings: Abnormal Labs 12/19/19 12/19/19 14:43 16:36 WBC 13.9 H Neutrophils # 10.4 H POC Glucose (mg/dL) 153 H - Diagnostic Findings Chest x-ray: report reviewed, image reviewed CT scan - chest: report reviewed, image reviewed (X-ray performed today reviewed and compared with prior x-rays including CAT scan reviewed as well) Assessment and Plan Assessment: Atypical pneumonia Ongoing cough Shortness of breath Plan: Cough medicine Continue Zosyn and Zithromax Add IV steroids Time with Patient: Greater than 30
[2019-12-19] MEDS: guaiFENesin-DM 100-10MG/5ML 10 ML CUP PO PRN ×2 (17:58→22:49)
[2019-12-19] MEDS: INSULIN ASPART (NovoLOG) 100 UNIT/ML VIAL SQ SCH ×2 (17:59→21:03)
[2019-12-19 20:16] LABS: Glucose,Whole Blood 130 mg/dL (75-99)
[2019-12-19] MEDS: methylPREDNISolone SOD SUCCI 40 MG/ML 1 ML VIAL IV SCH (22:49)
[2019-12-20 00:13] LABS: Albumin/Globulin Ratio 2.5 (1.60-3.17); Anion Gap 10.5 mmol/L (4.00-12.00); BUN/Creat Ratio 14.44 Ratio (12.00-20.00); Calcium 8.6 mg/dL (8.7-10.3); Carbon Dioxide 19.5 mmol/L (21.6-31.8); Globulin 1.6 g/dL (1.6-3.3); Magnesium 1.7 mg/dL (1.5-2.4); Non-African American GFR(CKD) 75.1 (60.0-200.0); Potassium 4.2 mmol/L (3.5-5.5); Total Bilirubin 0.7 mg/dL (0.2-1.2); Total Protein 5.6 g/dL (6.2-8.2)
[2019-12-20 06:34] LABS: Basophils % (A) 0 %; Eosinophils % (A) 0 %; HCT 37.5 % (34.0-46.0); HGB 12.1 gm/dL (11.4-16.0); Lymphocytes # (A) 0.7 k/uL (1.0-4.8); Lymphocytes % (A) 6 %; MCHC 32.2 g/dL (31.0-37.0); MCV 96.3 fL (80.0-100.0); Mean Platelet Volume 6.7; Monocytes # (A) 0.3 k/uL (0-1.0); Monocytes % (A) 3 %; Neutrophils # (A) 10.7 k/uL (1.3-7.7); Neutrophils % (A) 92 %; Platelet Count 318 k/uL (150-450); RBC 3.89 m/uL (3.80-5.40); RDW 12.7 % (11.5-15.5); WBC 11.7 k/uL (3.8-10.6)
[2019-12-20 07:25] LABS: Glucose,Whole Blood 141 mg/dL (75-99)
[2019-12-20] MEDS: methylPREDNISolone SOD SUCCI 40 MG/ML 1 ML VIAL IV SCH ×2 (08:18→15:33)
[2019-12-20] MEDS: guaiFENesin-DM 100-10MG/5ML 10 ML CUP PO PRN ×3 (08:18→21:33)
[2019-12-20] MEDS: PANTOPRAZOLE 40 MG/10 ML VIAL IVP SCH (08:18)
[2019-12-20] MEDS: ACETAMINOPHEN TAB 325 MG TAB PO PRN ×2 (08:19→21:38)
[2019-12-20] MEDS: FLUoxetine HCL 20 MG CAP PO SCH (08:20)
[2019-12-20] MEDS: lamoTRIgine 100 MG TAB PO SCH (08:20)
[2019-12-20] MEDS: SPIRONOLACTONE 25 MG TAB PO SCH (08:20)
[2019-12-20] MEDS: CHOLECALCIFEROL 1,000 UNIT TAB PO SCH (08:20)
[2019-12-20] MEDS: THYROID, PORK 30 MG TAB PO SCH ×2 (08:23→09:25)
[2019-12-20] MEDS: VITAMIN E (DL,TOCOPHERYL ACET) 400 UNIT CAP PO SCH (08:24)
[2019-12-20] MEDS: INSULIN ASPART (NovoLOG) 100 UNIT/ML VIAL SQ SCH ×4 (08:25→21:33)
[2019-12-20] MEDS: AZITHROMYCIN 500 MG in SODIUM CHLORIDE 0.9% 250 ML IVPB SCH (08:26)
[2019-12-20] MEDS: IPRATROPIUM-ALBUTEROL 3 ML NEB INHALATION SCH ×4 (08:39→19:57)
[2019-12-20] MEDS: FOCALIN PO SCH (09:25)
[2019-12-20] MEDS: PIPERACILLIN-TAZOBACTAM 3.375 GM in SODIUM CHLORIDE 0.9% 100 ML IVPB SCH ×2 (09:29→15:35)
[2019-12-20] MEDS: NICOTINE 14MG/24HR PATCH TRANSDERM SCH (09:29)
[2019-12-20 09:54] LABS: African American GFR (CKD) 100.3 (60.0-200.0); Albumin 4.1 g/dL (3.80-4.90); Albumin/Globulin Ratio 2.41 (1.60-3.17); Anion Gap 6.8 mmol/L (4.00-12.00); Calcium 8.9 mg/dL (8.7-10.3); Carbon Dioxide 23.2 mmol/L (21.6-31.8); Globulin 1.7 g/dL (1.6-3.3); Magnesium 2.1 mg/dL (1.5-2.4); Non-African American GFR(CKD) 86.6 (60.0-200.0); Potassium 4.6 mmol/L (3.5-5.5); Total Bilirubin 0.4 mg/dL (0.2-1.2); Total Protein 5.8 g/dL (6.2-8.2)
[2019-12-20 11:25] LABS: Glucose,Whole Blood 118 mg/dL (75-99)
[2019-12-20 11:32] VITALS: BMI 30.9
[2019-12-20 14:21] LABS: Hemoglobin A1C 5.5 % (4.0-6.0)
--- NOTE | 2019-12-20 16:40 | HP ---
HISTORY AND PHYSICAL HISTORY OF PRESENT ILLNESS: This is a 49-year-old white female, ongoing cough, congestion, shortness of breath for 4 weeks. Hospitalized last week for [address] scan shows ground glass attenuation, patchy areas bilaterally. Discharged. Having symptoms and came back to the hospital. She was given IV azithromycin, IV Zosyn, nonproductive cough. Robitussin was given for cough. REVIEW OF SYSTEMS: Fourteen-point review of systems negative except for mentioned in HPI. PAST MEDICAL HISTORY: COPD, osteoarthritis, pneumonia. History of ADD, anxiety, depression, PAST SURGICAL HISTORY: Hysterectomy. SOCIAL HISTORY: Former smoker. FAMILY HISTORY: Mother with cancer, CVA, TIA, hypertension. Brother with cancer of brain with METS. Father with congestive heart failure, COPD. She smokes 1 pack a day, has refused to quit. MEDICATIONS: Home medicines: Xanax 0.25 daily, 40 mg daily, 60 mg daily, spironolactone 25 daily, [place] Thyroid 75 mg daily, Lamictal 200 mg daily, Levaquin 750 daily, nicotine patch 24 hours daily. ALLERGIES: No known drug allergies. PHYSICAL EXAMINATION: Temperature is 98, pulse is 70s to 80s, respiratory rate 18 to 20, blood pressure 114 to 130s over 80s to 90s, O2 98-100 percent. HEENT is normocephalic, atraumatic. Pupils equal, round, reactive. LUNGS: Scattered wheeze and rhonchi. Decreased breath sounds x4. CARDIOVASCULAR: S1, S2. Tachy. Machine gun cough, better with cough syrup. GI is normal bowel sounds. NEUROLOGICAL: Cranial nerves are intact. MUSCULOSKELETAL: Strength equal bilaterally. PSYCH: Appropriate affect. LABORATORY DATA: White count 13.9, hemoglobin 12.2. ASSESSMENT: 1. Atypical pneumonia recurrence as an outpatient. 2. Severe cough, bronchospasm. 3. Chronic obstructive pulmonary disease exacerbation. Zosyn, vancomycin, IV steroids, updrafts. Possible discharge home in 24 to 48 hours depending on clinical course. Pulmonary consult. MMODL / IJN: [id number] /
[2019-12-20 17:05] LABS: Glucose,Whole Blood 148 mg/dL (75-99)
[2019-12-20 20:39] LABS: Glucose,Whole Blood 162 mg/dL (75-99)
[2019-12-20] MEDS: ALPRAZolam 0.25 MG TAB PO PRN (21:38)
[2019-12-21] MEDS: methylPREDNISolone SOD SUCCI 40 MG/ML 1 ML VIAL IV SCH ×4 (00:19→23:12)
[2019-12-21] MEDS: PIPERACILLIN-TAZOBACTAM 3.375 GM in SODIUM CHLORIDE 0.9% 100 ML IVPB SCH ×4 (00:19→23:12)
[2019-12-21 07:03] LABS: Glucose,Whole Blood 118 mg/dL (75-99)
[2019-12-21] MEDS: NICOTINE 14MG/24HR PATCH TRANSDERM SCH (07:16)
[2019-12-21] MEDS: AZITHROMYCIN 500 MG in SODIUM CHLORIDE 0.9% 250 ML IVPB SCH (07:16)
[2019-12-21] MEDS: SPIRONOLACTONE 25 MG TAB PO SCH (07:17)
[2019-12-21] MEDS: PANTOPRAZOLE 40 MG/10 ML VIAL IVP SCH (07:17)
[2019-12-21] MEDS: lamoTRIgine 100 MG TAB PO SCH (07:17)
[2019-12-21] MEDS: CHOLECALCIFEROL 1,000 UNIT TAB PO SCH (07:17)
[2019-12-21] MEDS: VITAMIN E (DL,TOCOPHERYL ACET) 400 UNIT CAP PO SCH (07:17)
[2019-12-21] MEDS: FLUoxetine HCL 20 MG CAP PO SCH (07:17)
[2019-12-21] MEDS: THYROID, PORK 30 MG TAB PO SCH ×2 (07:19→07:20)
[2019-12-21] MEDS: IPRATROPIUM-ALBUTEROL 3 ML NEB INHALATION SCH ×4 (07:22→19:08)
[2019-12-21] MEDS: guaiFENesin-DM 100-10MG/5ML 10 ML CUP PO PRN ×2 (07:28→14:43)
[2019-12-21] MEDS: INSULIN ASPART (NovoLOG) 100 UNIT/ML VIAL SQ SCH ×4 (08:03→20:59)
[2019-12-21] MEDS: FOCALIN PO SCH (09:32)
[2019-12-21] MEDS: ACETAMINOPHEN TAB 325 MG TAB PO PRN ×2 (10:52→20:58)
[2019-12-21 11:26] LABS: Glucose,Whole Blood 129 mg/dL (75-99)
[2019-12-21] MEDS ORDERED: VANCOMYCIN IV PER PHARMACY 1 EACH MISC MISCELLANE PRN (14:47)
[2019-12-21] MEDS ORDERED: VANCOMYCIN 1,750 MG in SODIUM CHLORIDE 0.9% 500 ML 500 ML IVPB ONE (15:00)
[2019-12-21] MEDS: BENZONATATE 100 MG CAP PO PRN ×2 (15:09→23:12)
[2019-12-21 16:52] LABS: Glucose,Whole Blood 144 mg/dL (75-99)
[2019-12-21 20:49] LABS: Glucose,Whole Blood 136 mg/dL (75-99)
[2019-12-21] MEDS: ALPRAZolam 0.25 MG TAB PO PRN (20:58)
--- NOTE | 2019-12-21 23:25 | PN ---
PROGRESS NOTE This is a 49-year-old white female who continues to have atypical type pneumonia recurrence, with a machine gun cough worse than she was the last 2 admissions. Her breathing is really bad. She came into the hospital for IV antibiotics after failing outpatient treatment and nonstop machine gun cough. She says she has not improved much since she has been admitted on Zosyn and azithromycin. We are going to add vancomycin, get Infectious Disease consult. She may need a bronchoscopy, but possibly consider doing a repeat CT scan. She is 95% on room air. Blood pressure is 101/66. Temperature is 98.3. Pulse is 80. Respiratory 20 to 25. Nonstop congestive cough. LUNGS: Show rhonchi x4. Mild wheezes x4. CARDIOVASCULAR: S1, S2. HEMATOLOGY: Negative Homans. PSYCH: Fair mood and affect. ASSESSMENT: Atypical pneumonia, failed outpatient treatment and multiple admissions. Possibly need to do a bronchoscopy. Continue with the steroids, IV antibiotics. Await for Dr. Kohli, resistor testing machine operator and Dr. Vazquez, Infectious Disease. Since she has no improvement since she has been admitted, we are going to add vancomycin to rule out possible MRSA infection as she is not improving and add Tessalon Perles for nonstop coughing and she is not responsive to normal cough syrup. Prognosis guarded. MMODL / IJN: [id number] /
[2019-12-22] MEDS ORDERED: VANCOMYCIN 1,500 MG in SODIUM CHLORIDE 0.9% 250 ML IVPB SCH (04:00)
[2019-12-22 06:21] LABS: Basophils % (A) 0 %; Eosinophils % (A) 0 %; HCT 35.4 % (34.0-46.0); HGB 10.9 gm/dL (11.4-16.0); Lymphocytes # (A) 1.3 k/uL (1.0-4.8); Lymphocytes % (A) 8 %; MCH 30.2 pg (25.0-35.0); MCHC 30.7 g/dL (31.0-37.0); MCV 98.1 fL (80.0-100.0); Mean Platelet Volume 6.6; Monocytes # (A) 0.7 k/uL (0-1.0); Monocytes % (A) 4 %; Neutrophils % (A) 87 %; Platelet Count 341 k/uL (150-450); RBC 3.61 m/uL (3.80-5.40); RDW 13.1 % (11.5-15.5); WBC 16.2 k/uL (3.8-10.6)
[2019-12-22 07:01] LABS: Glucose,Whole Blood 106 mg/dL (75-99)
[2019-12-22] MEDS: INSULIN ASPART (NovoLOG) 100 UNIT/ML VIAL SQ SCH ×4 (08:29→21:18)
[2019-12-22] MEDS: IPRATROPIUM-ALBUTEROL 3 ML NEB INHALATION SCH ×4 (08:32→19:24)
[2019-12-22] MEDS: AZITHROMYCIN 500 MG in SODIUM CHLORIDE 0.9% 250 ML IVPB SCH (08:36)
[2019-12-22] MEDS: NICOTINE 14MG/24HR PATCH TRANSDERM SCH (08:36)
[2019-12-22] MEDS: VITAMIN E (DL,TOCOPHERYL ACET) 400 UNIT CAP PO SCH (08:39)
[2019-12-22] MEDS: SPIRONOLACTONE 25 MG TAB PO SCH (08:39)
[2019-12-22] MEDS: FLUoxetine HCL 20 MG CAP PO SCH (08:39)
[2019-12-22] MEDS: CHOLECALCIFEROL 1,000 UNIT TAB PO SCH (08:39)
[2019-12-22] MEDS: THYROID, PORK 30 MG TAB PO SCH ×2 (08:40)
[2019-12-22] MEDS: FOCALIN PO SCH (08:41)
[2019-12-22] MEDS: lamoTRIgine 100 MG TAB PO SCH (08:41)
[2019-12-22] MEDS: PANTOPRAZOLE 40 MG/10 ML VIAL IVP SCH (08:41)
[2019-12-22] MEDS: methylPREDNISolone SOD SUCCI 40 MG/ML 1 ML VIAL IV SCH ×2 (08:41→15:21)
[2019-12-22] MEDS: BENZONATATE 100 MG CAP PO PRN ×2 (08:46→21:23)
[2019-12-22] MEDS ORDERED: THYROID, PORK 30 MG TAB PO SCH (09:00)
[2019-12-22] MEDS: PIPERACILLIN-TAZOBACTAM 3.375 GM in SODIUM CHLORIDE 0.9% 100 ML IVPB SCH ×2 (09:27→15:21)
[2019-12-22 10:10] LABS: African American GFR (CKD) 117.9 (60.0-200.0); Albumin 3.7 g/dL (3.80-4.90); Albumin/Globulin Ratio 2.64 (1.60-3.17); Anion Gap 4.5 mmol/L (4.00-12.00); BUN/Creat Ratio 15.71 Ratio (12.00-20.00); Calcium 8.5 mg/dL (8.7-10.3); Carbon Dioxide 27.5 mmol/L (21.6-31.8); Globulin 1.4 g/dL (1.6-3.3); Non-African American GFR(CKD) 101.7 (60.0-200.0); Potassium 4.4 mmol/L (3.5-5.5); Total Bilirubin 0.2 mg/dL (0.2-1.2); Total Protein 5.1 g/dL (6.2-8.2)
[2019-12-22 11:33] LABS: Glucose,Whole Blood 113 mg/dL (75-99)
[2019-12-22] MEDS: VANCOMYCIN 1,500 MG in SODIUM CHLORIDE 0.9% 250 ML IVPB SCH ×2 (11:50→21:23)
--- NOTE | 2019-12-22 11:58 | P.PN ---
Subjective Progress Note Date: 12/22/19 Principal diagnosis: Atypical pneumonia Ongoing cough Shortness of breath Morbid obesity Obstructive sleep apnea Major depression Osteoporosis 12/22/2019, patient seen eval reexamined has been ambulating in the room cough congestion shortness breath significantly improved, respiratory pattern is improved, sputum is clear, denies any chest pain,, she is complaining of long- standing history of excessive daytime sleepiness snoring, labs reviewed medications reviewed care plan discussed with the patient at length This is a 49-year-old female came into the hospital with problems of ongoing cough congestion shortness of breath going on for 4 weeks, patient was hospitali zed last week for 3 days CAT scan shows groundglass attenuation of patchy area bilaterally she was discharged but continued to have symptoms ongoing came back into the hospital, she has been tested for cold weight which has been -2 times, she is currently being treated with IV Zithromax as well as the IV Zosyn, ongoing dry nonproductive cough is present which is being started on the Robitussin-DM cough medicine as well Objective - Vital Signs Vital signs: Vital Signs Temp 98.1 F 12/22/19 07:00 Pulse 84 12/22/19 08:33 Resp 18 12/22/19 07:00 BP 142/92 12/22/19 07:00 Pulse Ox 96 12/22/19 07:00 Intake & Output 12/21/19 12/22/19 12/22/19 18:59 06:59 18:59 Intake Total 500 Balance 500 Intake: Oral 500 Other: Voiding Method Toilet Toilet # Voids 2 1 # Bowel Movements 1 - Exam - Constitutional General appearance: average body habitus, cooperative, disheveled - EENT Eyes: EOMI, PERRLA Ears: bilateral: normal - Neck Neck: normal ROM Carotids: bilateral: upstroke normal Thyroid: bilateral: normal size - Respiratory Respiratory: bilateral: CTA - Cardiovascular Rhythm: regular Heart sounds: normal: S1, S2 - Gastrointestinal General gastrointestinal: normal bowel sounds - Neurologic Neurologic: CNII-XII intact - Musculoskeletal Musculoskeletal: gait normal, generalized weakness, strength equal bilaterally - Psychiatric Psychiatric: A&O x's 3, appropriate affect, intact judgment & insight - Labs CBC & Chem 7: 12/22/19 05:45 12/22/19 05:45 Labs: Abnormal Lab Results - Last 24 Hours (Table) 12/21/19 12/21/19 12/22/19 Range/Units 16:51 20:25 05:45 WBC 16.2 H (3.8-10.6) k/uL RBC 3.61 L (3.80-5.40) m/uL Hgb 10.9 L (11.4-16.0) gm/dL MCHC 30.7 L (31.0-37.0) g/dL Neutrophils # 14.0 H (1.3-7.7) k/uL POC Glucose (mg/dL) 144 H 136 H (75-99) mg/dL Calcium (8.7-10.3) mg/dL Total Protein (6.2-8.2) g/dL Albumin (3.80-4.90) g/dL Globulin (1.6-3.3) g/dL 12/22/19 12/22/19 12/22/19 Range/Units 05:45 06:59 11:32 WBC (3.8-10.6) k/uL RBC (3.80-5.40) m/uL Hgb (11.4-16.0) gm/dL MCHC (31.0-37.0) g/dL Neutrophils # (1.3-7.7) k/uL POC Glucose (mg/dL) 106 H 113 H (75-99) mg/dL Calcium 8.5 L (8.7-10.3) mg/dL Total Protein 5.1 L (6.2-8.2) g/dL Albumin 3.70 L (3.80-4.90) g/dL Globulin 1.4 L (1.6-3.3) g/dL Assessment and Plan Assessment: Atypical pneumonia Ongoing cough Shortness of breath Morbid obesity Obstructive sleep apnea Major depression Osteoporosis Borderline hypertension Plan: Cough medicine as needed From pulmonary standpoint patient can be discharged home on oral Zithromax 500 mg daily for 5 days to 7 days and Medrol Dosepak use as directed Recommend follow-up as outpatient so that a polysomnogram can be scheduled and patient can be scheduled for follow-up computed tomography scan of the chest As always he appreciated in involving us in care of this patient and follow with you Time with Patient: Greater than 30
[2019-12-22 16:48] LABS: Glucose,Whole Blood 147 mg/dL (75-99)
[2019-12-22 20:58] LABS: Glucose,Whole Blood 111 mg/dL (75-99)
[2019-12-22] MEDS: ACETAMINOPHEN TAB 325 MG TAB PO PRN (21:23)
[2019-12-22] MEDS: ALPRAZolam 0.25 MG TAB PO PRN (21:23)
--- NOTE | 2019-12-22 22:43 | PN ---
PROGRESS NOTE This patient is a 49-year-old white female who is admitted with COPD exacerbation, atypical community-acquired pneumonia. She continues to improve from a medical standpoint. CARDIOVASCULAR: S1, S2. LUNGS: Scattered wheeze x4. Rhonchi x4. HEMATOLOGY: Negative Homans. ASSESSMENT: 1. Chronic obstructive pulmonary disease exacerbation. 2. Atypical pneumonia, improved with Tessalon Perles, IV antibiotics, steroids. Will follow up. Possible discharge home in the morning, as she is greatly improved since we started her on the vancomycin to go with the Zosyn. MMODL / IJN: [id number] /
--- NOTE | 2019-12-22 23:05 | P.CONS ---
History of Present Illness - Reason for Consult Consult date: 12/22/19 Pneumonia Requesting physician: Jayden Louie - Chief Complaint Shortness of breath and cough x weeks - History of Present Illness Patient is a 49 year female who was recently admitted to this facility on 12/10/2019 for evaluation of cough and been going on for almost 3 weeks which was dry in nature, patient at that time did have a CT of the chest we did shows multifocal groundglass opacity is upper to mid lung bilaterally with concern for possible covid 19, patient did have a nasopharyngeal swab for coronavirus that admission which came back negative, patient subsequently discharged home on steroids and Levaquin patient mentioned that she did have initial improvement however subsequently was on having a problem with increased shortness of breath as well as cough, has been recorded in intensity is mostly dry in nature with occasional sputum production no hemoptysis or nausea and vomiting which was in the form of bone pain or any diarrhea with this into the patient has been admitted back to the hospital on 12/19/2019, the patient had chest x-ray which was findings likely correlated to patient to have a CT correlate for pneumonia patient was evaluated by pulmonary and has been treated with azithromycin Zosyn and vancomycin infection was considered for further management of antibiotic therapy Review of Systems Positive point has been mentioned in the HPI rest of the systems are negative Past Medical History Past Medical History: COPD, Osteoarthritis (OA), Pneumonia Additional Past Medical History / Comment(s): shots in hands for arthritis History of Any Multi-Drug Resistant Organisms: None Reported Past Surgical History: Hysterectomy Past Anesthesia/Blood Transfusion Reactions: No Reported Reaction Additional Past Anesthesia/Blood Transfusion Reaction / Comm: got too much anesthetic with surgery once. per pt Past Psychological History: ADD/ADHD, Anxiety, Depression Additional Psychological History / Comment(s): bipolar sees counselor Smoking Status: Former smoker Past Alcohol Use History: Rare Additional Past Alcohol Use History / Comment(s): Stop smoking 9 days and start smoking in 1996 Past Drug Use History: None Reported - Past Family History Mother Family Medical History: Cancer, CVA/TIA, Hypertension Additional Family Medical History / Comment(s): open heart Brother(s) Family Medical History: Cancer Additional Family Medical History / Comment(s): lung with brain mets in remission Father Family Medical History: Congestive Heart Failure (CHF), COPD Additional Family Medical History / Comment(s): emphysema Medications and Allergies Home Medications Medication Instructions Recorded Confirmed Type ALPRAZolam [Xanax] 0.25 mg PO DAILY PRN 12/10/19 12/19/19 History Cholecalciferol [Vitamin D3 (25 1,000 unit PO DAILY 12/10/19 12/19/19 History Mcg = 1000 Iu)] Dexmethylphenidate HCl 40 mg PO DAILY 12/10/19 12/19/19 History [Dexmethylphenidate HCl ER] FLUoxetine HCL [[place]] 60 mg PO DAILY 12/10/19 12/19/19 History Spironolactone 25 mg PO DAILY 12/10/19 12/19/19 History Thyroid,Pork [[place] Thyroid] 15 mg PO DAILY 12/10/19 12/19/19 History Thyroid,Pork [[place] Thyroid] 60 mg PO DAILY 12/10/19 12/19/19 History Vitamin E 1,000 unit PO DAILY 12/10/19 12/19/19 History lamoTRIgine 200 mg PO DAILY 12/10/19 12/19/19 History Levofloxacin [Levaquin] 750 mg PO DAILY tab 12/12/19 12/19/19 Rx Nicotine 14Mg/24Hr Patch [Habitrol] 1 patch TRANSDERM DAILY patch 12/12/19 12/19/19 Rx Thyroid,Pork [[place] Thyroid] 15 mg PO MOWE 12/19/19 12/19/19 History Allergies Allergy/AdvReac Type Severity Reaction Status Date / Time No Known Allergies Allergy Verified 12/19/19 12:44 Physical Exam Vitals: Vital Signs Temp Pulse Pulse Resp BP BP Pulse Ox 12/22/19 08:33 84 12/22/19 07:00 98.1 F 60 18 142/92 96 12/22/19 01:00 98 F 73 18 113/71 95 12/21/19 19:17 88 12/21/19 19:08 87 12/21/19 19:00 98.2 F 81 20 109/72 93 L 12/21/19 15:26 84 12/21/19 15:15 84 12/21/19 15:00 98.3 F 85 20 101/66 95 Intake and Output 12/21/19 12/22/19 12/22/19 22:59 06:59 14:59 Intake Total 400 100 Balance 400 100 Intake: Oral 400 100 Other: Voiding Method Toilet Toilet # Voids 2 1 # Bowel Movements 1 GENERAL DESCRIPTION: Middle-aged female lying in bed, no distress. No tachypnea or accessory muscle of respiration use. HEENT: Shows Pallor , no scleral icterus. Oral mucous membrane is dry. No pharyngeal erythema or thrush NECK: Trachea central, no thyromegaly. LUNGS: Unlabored breathing. Decreased intensity of breath sounds. No wheeze or crackle. HEART: S1, S2, regular rate and rhythm. No loud murmur ABDOMEN: Soft, no tenderness , guarding or rigidity, no organomegaly EXTREMITIES: No edema of feet. SKIN: No rash, no masses palpable. NEUROLOGICAL: The patient is awake, alert, oriented x3, mood and affect normal. Results CBC & Chem 7: 12/22/19 05:45 12/22/19 05:45 Labs: Abnormal Lab Results - Last 24 Hours (Table) 12/21/19 12/21/19 12/21/19 Range/Units 11:24 16:51 20:25 WBC (3.8-10.6) k/uL RBC (3.80-5.40) m/uL Hgb (11.4-16.0) gm/dL MCHC (31.0-37.0) g/dL Neutrophils # (1.3-7.7) k/uL POC Glucose (mg/dL) 129 H 144 H 136 H (75-99) mg/dL Calcium (8.7-10.3) mg/dL Total Protein (6.2-8.2) g/dL Albumin (3.80-4.90) g/dL Globulin (1.6-3.3) g/dL 12/22/19 12/22/19 12/22/19 Range/Units 05:45 05:45 06:59 WBC 16.2 H (3.8-10.6) k/uL RBC 3.61 L (3.80-5.40) m/uL Hgb 10.9 L (11.4-16.0) gm/dL MCHC 30.7 L (31.0-37.0) g/dL Neutrophils # 14.0 H (1.3-7.7) k/uL POC Glucose (mg/dL) 106 H (75-99) mg/dL Calcium 8.5 L (8.7-10.3) mg/dL Total Protein 5.1 L (6.2-8.2) g/dL Albumin 3.70 L (3.80-4.90) g/dL Globulin 1.4 L (1.6-3.3) g/dL Assessment and Plan Assessment: 1- patient being admitted to the hospital with increased shortness of breath and cough failing outpatient oral Levaquin therapy chest x-ray reported correlate for a CT and concern for pneumonia in this patient failing outpatient steroids and Levaquin therapy patient did have a covid 19 testing came back negative, with concern for possible atypical bacterial pneumonia (1) Pneumonia Current Visit: Yes Status: Acute Code(s): J18.9 - PNEUMONIA, UNSPECIFIED ORGANISM SNOMED Code(s): 301183196 Plan: 1- we will check a CRP pro calcitonin and urine for Legionella antigen 2-await sputum culture finalized 3- continue with Zosyn and Zithromax however discontinued vancomycin to decrease risk of nephrotoxicity We will follow on clinical condition and cultures to further adjust medication if needed Thank you for this consultation will follow this patient with you Time with Patient: Greater than 30
[2019-12-23] MEDS: methylPREDNISolone SOD SUCCI 40 MG/ML 1 ML VIAL IV SCH ×2 (01:22→08:31)
[2019-12-23] MEDS: PIPERACILLIN-TAZOBACTAM 3.375 GM in SODIUM CHLORIDE 0.9% 100 ML IVPB SCH ×2 (01:22→10:40)
[2019-12-23 01:55] VITALS: RESP 16
[2019-12-23 06:50] LABS: Glucose,Whole Blood 130 mg/dL (75-99)
[2019-12-23] MEDS: INSULIN ASPART (NovoLOG) 100 UNIT/ML VIAL SQ SCH ×2 (07:22→11:49)
[2019-12-23] MEDS: NICOTINE 14MG/24HR PATCH TRANSDERM SCH (08:28)
[2019-12-23] MEDS: CHOLECALCIFEROL 1,000 UNIT TAB PO SCH (08:29)
[2019-12-23] MEDS: FLUoxetine HCL 20 MG CAP PO SCH (08:29)
[2019-12-23] MEDS: SPIRONOLACTONE 25 MG TAB PO SCH (08:29)
[2019-12-23] MEDS: lamoTRIgine 100 MG TAB PO SCH (08:29)
[2019-12-23] MEDS: THYROID, PORK 30 MG TAB PO SCH ×2 (08:30)
[2019-12-23] MEDS: VITAMIN E (DL,TOCOPHERYL ACET) 400 UNIT CAP PO SCH (08:30)
[2019-12-23] MEDS: AZITHROMYCIN 500 MG in SODIUM CHLORIDE 0.9% 250 ML IVPB SCH (08:35)
[2019-12-23] MEDS: BENZONATATE 100 MG CAP PO PRN ×2 (08:35→16:15)
[2019-12-23] MEDS: IPRATROPIUM-ALBUTEROL 3 ML NEB INHALATION SCH ×3 (08:57→16:25)
[2019-12-23] MEDS ORDERED: PANTOPRAZOLE 40 MG TABLET PO SCH (09:00)
--- NOTE | 2019-12-23 09:31 | P.PN ---
Subjective Progress Note Date: 12/23/19 Principal diagnosis: Atypical pneumonia Ongoing cough Shortness of breath Morbid obesity Obstructive sleep apnea Major depression Osteoporosis 12/23/2019, patient seen eval reexamined during the rounds labs reviewed medications reviewed care plan discussed also cuff congestion shortness of breath significantly improved patient able to ambulate, during exertion and activity not complaining of any cough or shortness of breath now, patient remains on IV antibiotics being suspected likely discharge later on today with follow-up in outpatient as noted above 12/22/2019, patient seen eval reexamined has been ambulating in the room cough congestion shortness breath significantly improved, respiratory pattern is improved, sputum is clear, denies any chest pain,, she is complaining of long- standing history of excessive daytime sleepiness snoring, labs reviewed medications reviewed care plan discussed with the patient at length This is a 49-year-old female came into the hospital with problems of ongoing cough congestion shortness of breath going on for 4 weeks, patient was hospitalized last week for 3 days CAT scan shows groundglass attenuation of patchy area bilaterally she was discharged but continued to have symptoms ongoing came back into the hospital, she has been tested for cold weight which has been -2 times, she is currently being treated with IV Zithromax as well as the IV Zosyn, ongoing dry nonproductive cough is present which is being started on the Robitussin- cough medicine as well Objective - Vital Signs Vital signs: Vital Signs Temp 98.1 F 12/23/19 07:10 Pulse 76 12/23/19 09:09 Resp 16 12/23/19 07:10 BP 122/78 12/23/19 07:10 Pulse Ox 90 L 12/23/19 07:10 Intake & Output 12/22/19 12/23/19 12/23/19 18:59 06:59 18:59 Intake Total 300 Balance 300 Intake: Oral 300 Other: Voiding Method Toilet Toilet # Voids 1 1 # Bowel Movements 1 - Exam - Constitutional General appearance: average body habitus, cooperative, disheveled - EENT Eyes: EOMI, PERRLA Ears: bilateral: normal - Neck Neck: normal ROM Carotids: bilateral: upstroke normal Thyroid: bilateral: normal size - Respiratory Respiratory: bilateral: CTA - Cardiovascular Rhythm: regular Heart sounds: normal: S1, S2 - Gastrointestinal General gastrointestinal: normal bowel sounds - Neurologic Neurologic: CNII-XII intact - Musculoskeletal Musculoskeletal: gait normal, generalized weakness, strength equal bilaterally - Psychiatric Psychiatric: A&O x's 3, appropriate affect, intact judgment & insight - Labs CBC & Chem 7: 12/22/19 05:45 12/22/19 05:45 Labs: Abnormal Lab Results - Last 24 Hours (Table) 12/22/19 12/22/19 12/22/19 Range/Units 05:45 11:32 16:46 POC Glucose (mg/dL) 113 H 147 H (75-99) mg/dL Calcium 8.5 L (8.7-10.3) mg/dL Total Protein 5.1 L (6.2-8.2) g/dL Albumin 3.70 L (3.80-4.90) g/dL Globulin 1.4 L (1.6-3.3) g/dL 12/22/19 12/23/19 Range/Units 20:51 06:48 POC Glucose (mg/dL) 111 H 130 H (75-99) mg/dL Calcium (8.7-10.3) mg/dL Total Protein (6.2-8.2) g/dL Albumin (3.80-4.90) g/dL Globulin (1.6-3.3) g/dL Microbiology - Last 24 Hours (Table) 12/22/19 08:36 Gram Stain - Preliminary Sputum Sputum Culture - Preliminary Assessment and Plan Assessment: Atypical pneumonia Ongoing cough Shortness of breath Morbid obesity Obstructive sleep apnea Major depression Osteoporosis Borderline hypertension Plan: Increase activity as tolerated Cough medicine as needed From pulmonary standpoint patient can be discharged home on oral antibiotics and Medrol Dosepak use as directed Recommend follow-up as outpatient so that a polysomnogram can be scheduled and patient can be scheduled for follow-up computed tomography scan of the chest Smoking cessation and counseling advised As always he appreciated in involving us in care of this patient and follow with you Time with Patient: Greater than 30
[2019-12-23] MEDS: FOCALIN PO SCH (10:39)
[2019-12-23 11:40] LABS: Glucose,Whole Blood 118 mg/dL (75-99)
--- NOTE | 2019-12-23 14:19 | PN ---
PROGRESS NOTE DATE OF SERVICE: 12/23/2019 REASON FOR FOLLOWUP: Pneumonia. INTERVAL HISTORY: The patient is currently afebrile. The patient is breathing comfortably on room air. Denies having any chest pain. No shortness of breath. Cough significant decrease mostly dry in nature. No nausea, no vomiting. No abdominal pain no diarrhea. PHYSICAL EXAMINATION: Blood pressure 122/78 with a pulse of 75, temperature 98.1. She is 98% on room air. General description is a middle-aged female up in the bed in no distress respiratory system: Unlabored breathing, decreased BS no wheeze heart S1, S2. Regular rate and rhythm abdomen. LABS: No new labs have been obtained except Vanco 16. Sputum cultures currently pending. DIAGNOSTIC IMPRESSION AND PLAN: Patient admitted to hospital with shortness of breath and cough with concern for pneumonia, the patient clinically responding to the Zosyn and daptomycin to continue while waiting for the sputum culture to finalize to determine her discharge antibiotics. Continue supportive care. MMODL / IJN: [id number] /
[2019-12-23 15:36] VITALS: BP 110/71; TEMP 98.4
[2019-12-23 16:36] VITALS: PULSE 77
[2019-12-24] MEDS ORDERED: AZITHROMYCIN 500 MG TAB PO SCH (09:00)
== END 2019-12-23 17:19 | disposition home or self-care (01) | DRG 194 ==
LOC: 4SSUR 11:51
PROVIDERS: ADMIT Family Medicine; ATTEND Family Medicine
DX: J18.9 Pneumonia, unspecified organism (principal); J44.0 Chronic obstructive pulmonary disease with (acute) lower respiratory infection; J44.1 Chronic obstructive pulmonary disease with (acute) exacerbation; F17.210 Nicotine dependence, cigarettes, uncomplicated; F31.9 Bipolar disorder, unspecified; G47.33 Obstructive sleep apnea (adult) (pediatric); M81.0 Age-related osteoporosis without current pathological fracture; Z71.6 Tobacco abuse counseling; M19.042 Primary osteoarthritis, left hand; M19.041 Primary osteoarthritis, right hand; F41.9 Anxiety disorder, unspecified; F90.9 Attention-deficit hyperactivity disorder, unspecified type; I10 Essential (primary) hypertension; E66.01 Morbid (severe) obesity due to excess calories; Z68.30 Body mass index [BMI] 30.0-30.9, adult; Z79.899 Other long term (current) drug therapy; Z82.3 Family history of stroke; Z82.5 Family history of asthma and other chronic lower respiratory diseases; Z80.1 Family history of malignant neoplasm of trachea, bronchus and lung; Z82.49 Family history of ischemic heart disease and other diseases of the circulatory system; Z80.8 Family history of malignant neoplasm of other organs or systems; Z90.710 Acquired absence of both cervix and uterus; Z87.01 Personal history of pneumonia (recurrent)
CPT/HCPCS: 71046; 80053; 80202; 83036; 83735; 84145; 85025; 86140; 87070; 87205; 87449; 94640

== ENCOUNTER → 2020-04-22 | Outpatient (CLI) | payer BC ==
[2020-04-23 04:24] LABS: T4, Free (Free Thyroxine) 0.8 ng/dL (0.80-1.80)
== END | disposition home or self-care (01) ==
LOC: LABWHC1 14:42
PROVIDERS: ATTEND Internal Medicine
DX: E06.3 Autoimmune thyroiditis (principal); E55.9 Vitamin D deficiency, unspecified
CPT/HCPCS: 36415; 82306; 84439; 84443

== ENCOUNTER → 2020-06-04 | Outpatient (CLI) | payer BC ==
[2020-06-04 11:41] LABS: ALT 17 U/L (4-34); AST 27 U/L (14-36); African American GFR (CKD) >90 (>60 ml/min/1.73 sqM); Albumin 4.2 g/dL (3.5-5.0); Albumin/Globulin Ratio 1.8; Alkaline Phosphatase 84 U/L (38-126); Anion Gap 4 mmol/L; Blood Urea Nitrogen 12 mg/dL (7-17); Calcium 9.4 mg/dL (8.4-10.2); Carbon Dioxide 29 mmol/L (22-30); Chloride 105 mmol/L (98-107); Cholesterol 248 mg/dL (<200); Globulin 2.4 g/dL; Glucose 89 mg/dL (74-99); HDL Cholesterol 65 mg/dL (40-60); LDL Cholesterol,Calculated 158 mg/dL (0-99); Non-African American GFR(CKD) >90 (>60 ml/min/1.73 sqM); Potassium 4.8 mmol/L (3.5-5.1); Sodium 138 mmol/L (137-145); Total Bilirubin 0.5 mg/dL (0.2-1.3); Total Protein 6.6 g/dL (6.3-8.2); Triglycerides 126 mg/dL (<150)
[2020-06-04 15:52] LABS: HCT 38.7 % (37.2-46.3); HGB 12.5 g/dL (12.0-15.0); MCH 31.6 pg (27.0-32.0); MCHC 32.3 g/dL (32.0-37.0); MCV 97.7 fL (80.0-97.0); Mean Platelet Volume 9.6 fL (9.5-12.2); Platelet Count 412 X 10*3/uL (140-440); RBC 3.96 X 10*6/uL (4.10-5.20); RDW 13.1 % (11.5-14.5); WBC 5.95 X 10*3/uL (4.50-10.00)
[2020-06-04 17:49] LABS: Hemoglobin A1C 5.3 % (4.0-6.0)
== END | disposition home or self-care (01) ==
LOC: LABWHC1 10:04
PROVIDERS: ATTEND Family Medicine
DX: B89 Unspecified parasitic disease (principal); I10 Essential (primary) hypertension; Z79.899 Other long term (current) drug therapy
CPT/HCPCS: 36415; 80053; 80061; 83036; 84443; 85027

== ENCOUNTER → 2020-07-01 | Outpatient (CLI) | payer BC ==
[2020-07-02 02:30] LABS: T4, Free (Free Thyroxine) 0.8 ng/dL (0.80-1.80)
== END | disposition home or self-care (01) ==
LOC: LABWHC1 14:49
PROVIDERS: ATTEND Family Medicine
DX: E06.3 Autoimmune thyroiditis (principal); Z77.120 Contact with and (suspected) exposure to mold (toxic)
CPT/HCPCS: 36415; 84439; 84443; 84481; 86003; 86376

== ENCOUNTER → 2020-07-19 | Outpatient (CLI) | payer BC ==
[2020-07-20 15:32] LABS: T4, Free (Free Thyroxine) 0.9 ng/dL (0.80-1.80)
== END | disposition home or self-care (01) ==
LOC: LABWHC1 15:00
PROVIDERS: ATTEND Internal Medicine
DX: E06.3 Autoimmune thyroiditis (principal)
CPT/HCPCS: 36415; 84439; 84443

== ENCOUNTER → 2020-07-27 | Outpatient (CLI) | payer BC ==
--- NOTE | 2020-07-27 10:55 | BD ---
EXAMINATION TYPE: Axial Bone Density DATE OF EXAM: 07/27/2020 COMPARISON: 10/22/2017 CLINICAL HISTORY: Postmenopausal female. Height: 65.5 IN Weight: 185 LBS FRAX RISK QUESTIONS: Secondary Osteoporosis: 3. Menopause before 45: TOTAL HYST AGE 27 RISK FACTORS HISTORY OF: Family History of Osteoporosis: YES MOTHER Active: YES Postmenopausal woman: AGE 27 TOTAL HYST Take estrogen and/or progesterone medications: NOT NOW How long: AGE 27-46 MEDICATIONS: Thyroid Medications: YES Which medication: ARMOUR How Long: SINCE AGE 16 Additional Medications: VIT D, ARMOUR,FOCALIN XR, FLUOXETINE, LAMOTRIGINE,SPIRONOLACTONE EXAM MEASUREMENTS: Bone mineral densitometry was performed using the [employer] System. Bone mineral density as measured about the Lumbar spine is: ----- L1-L4(G/cm2): 1.083 T Score Values are as follows: ----- L2: -0.8 ----- L3: -0.8 ----- L4: -0.7 ----- L1-L4: -0.8 Bone mineral density has: Decreased -1.4% since study of: 10/22/2017 Bone mineral density about the R hip (g/cm2): 0.953 Bone mineral density about the L hip (g/cm2): 1.022 T Score values are as follows: -----R Neck: -0.6 -----L Neck: -0.1 -----R Total: -0.2 -----L Total: 0.1 Bone mineral density has: Decreased -3.7% since study of: 10/22/2017 IMPRESSION: Normal (Values between +1 and -1 indicate normal bone mass). Consider repeating this study in 5 year s or sooner if there is some new clinical indication. NOTE: T-SCORE=SD OF THE YOUNG ADULT MEAN.
--- NOTE | 2020-07-27 11:13 | MM ---
Reason for exam: screening (asymptomatic). Last mammogram was performed 2 years and 9 months ago. History: Patient is postmenopausal and is nulliparous. Took estrogen for 18 years beginning at age 27. Physical Findings: A clinical breast exam by your physician is recommended on an annual basis and results should be correlated with mammographic findings. MG 3D Screening Mammo W/Cad Bilateral CC and MLO view(s) were taken. XCCL view(s) were taken of the left breast. Prior study comparison: October 22, 2017, bilateral MG screening mammo w CAD. January 21, 2015, mammogram, performed at [facility]. There are scattered fibroglandular densities. Finding: There are typically benign round, regional calcifications in both breasts. There is a chronic nodularity in the right breast. There is no discrete abnormality. ASSESSMENT: Benign, BI-RAD 2 RECOMMENDATION: Routine screening mammogram of both breasts in 1 year.
== END | disposition home or self-care (01) ==
LOC: RADMAMWWP 09:58
PROVIDERS: ATTEND Family Medicine
DX: Z12.31 Encounter for screening mammogram for malignant neoplasm of breast (principal); Z78.0 Asymptomatic menopausal state
CPT/HCPCS: 77063; 77067; 77080

== ENCOUNTER → 2020-12-08 | Outpatient (CLI) | payer BC ==
[2020-12-09 00:41] LABS: Hemoglobin A1C 4.8 % (4.0-6.0)
== END | disposition home or self-care (01) ==
LOC: LABWHC1 15:54
PROVIDERS: ATTEND Family Medicine
DX: I10 Essential (primary) hypertension (principal); Z79.899 Other long term (current) drug therapy
CPT/HCPCS: 36415; 83036; 84443

== ENCOUNTER → 2021-01-21 | Outpatient (CLI) | payer BC ==
[2021-01-22 03:11] LABS: T4, Free (Free Thyroxine) 0.95 ng/dL (0.800-1.800)
== END | disposition home or self-care (01) ==
LOC: LABWHC1 13:56
PROVIDERS: ATTEND Internal Medicine
DX: E06.3 Autoimmune thyroiditis (principal)
CPT/HCPCS: 36415; 84439; 84443

== ENCOUNTER → 2021-06-23 | Outpatient (CLI) | payer BC ==
[2021-06-23 18:56] LABS: HCT 39.2 % (37.2-46.3); HGB 12.5 g/dL (12.0-15.0); MCH 31.3 pg (27.0-32.0); MCHC 31.9 g/dL (32.0-37.0); Mean Platelet Volume 9.3 fL (9.5-12.2); NRBC Per 100 WBC 0 /100 WBCS (0.0-0.0); Platelet Count 371 X 10*3/uL (140-440); RDW 12.3 % (11.5-14.5); WBC 6.11 X 10*3/uL (4.50-10.00)
[2021-06-23 19:13] LABS: ALT 18 U/L (8-44); AST 20 U/L (13-35); African American GFR (CKD) 109.6 (60.0-200.0); Albumin 4.5 g/dL (3.8-4.9); Albumin/Globulin Ratio 2.33 (1.60-3.17); Alkaline Phosphatase 94 U/L (41-126); BUN/Creat Ratio 14.29 Ratio (12.00-20.00); Blood Urea Nitrogen 10.5 mg/dL (9.0-27.0); Calcium 9.5 mg/dL (8.7-10.3); Chloride 103 mmol/L (96-109); Globulin 1.9 g/dL (1.6-3.3); Glucose 80 mg/dL (70-110); LDL Cholesterol,Calculated 132.4 mg/dL (0.0-131.0); Non-African American GFR(CKD) 94.6 (60.0-200.0); Potassium 4.3 mmol/L (3.5-5.5); Sodium 140 mmol/L (135-145); Total Protein 6.4 g/dL (6.2-8.2)
== END | disposition home or self-care (01) ==
LOC: LABWHC1 10:30
PROVIDERS: ATTEND Family Medicine
DX: Z00.00 Encounter for general adult medical examination without abnormal findings (principal)
CPT/HCPCS: 36415; 80053; 80061; 83036; 84443; 85027

== ENCOUNTER 2021-10-07 14:49 | Emergency (ER) | payer BC ==
[2021-10-07 14:54] VITALS: TEMP 98.1
[2021-10-07] MEDS ORDERED: SODIUM CHLORIDE 0.9% 1,000 ML IV STA (15:12)
--- NOTE | 2021-10-07 15:22 | ED ---
General Adult HPI - General Chief complaint: Arrhythmia/Palpitations Stated complaint: Syncope/Weakness/Sent By PCP Time Seen by Provider: 10/07/21 15:06 Source: patient, RN notes reviewed, old records reviewed Mode of arrival: wheelchair Limitations: no limitations - History of Present Illness Initial comments: 51-year-old female presents from home with increased heart palpitations, anxiety, chest pain over the past 4 days. She had a right upper chest pain which is intermittent. Patient states she contacted her primary care physician who sent her to the emergency department for evaluation. She states that she believes this may be related to her thyroid. She denies a central radiating chest pain. She's had poor appetite and poor intake over the past several days. She has been sleeping more than usual. - Related Data Home Medications Medication Instructions Recorded Confirmed ALPRAZolam [Xanax] 0.25 mg PO DAILY PRN 12/10/19 12/19/19 Cholecalciferol [Vitamin D3 (25 1,000 unit PO DAILY 12/10/19 12/19/19 Mcg = 1000 Iu)] Dexmethylphenidate HCl 40 mg PO DAILY 12/10/19 12/19/19 [Dexmethylphenidate HCl ER] FLUoxetine HCL [Sarafem] 60 mg PO DAILY 12/10/19 12/19/19 Spironolactone 25 mg PO DAILY 12/10/19 12/19/19 Thyroid,Pork [[place] Thyroid] 15 mg PO DAILY 12/10/19 12/19/19 Thyroid,Pork [[place] Thyroid] 60 mg PO DAILY 12/10/19 12/19/19 Vitamin E (Dl,Tocopheryl Acet) 1,000 unit PO DAILY 12/10/19 12/19/19 [Vitamin E] lamoTRIgine 200 mg PO DAILY 12/10/19 12/19/19 Thyroid,Pork [[place] Thyroid] 15 mg PO MOWE 12/19/19 12/19/19 Previous Rx's Medication Instructions Recorded Levofloxacin [Levaquin] 750 mg PO DAILY tab 12/12/19 Nicotine 14Mg/24Hr Patch [Habitrol] 1 patch TRANSDERM DAILY patch 12/12/19 Moxifloxacin HCl [Avelox] 400 mg PO DAILY 7 Days #7 tablet 12/23/19 Allergies Allergy/AdvReac Type Severity Reaction Status Date / Time No Known Allergies Allergy Verified 12/19/19 12:44 Review of Systems ROS Statement: Those systems with pertinent positive or pertinent negative responses have been documented in the HPI. ROS Other: All systems not noted in ROS Statement are negative. Past Medical History Past Medical History: COPD, Osteoarthritis (OA), Pneumonia Additional Past Medical History / Comment(s): shots in hands for arthritis History of Any Multi-Drug Resistant Organisms: None Reported Past Surgical History: Hysterectomy Past Anesthesia/Blood Transfusion Reactions: No Reported Reaction Additional Past Anesthesia/Blood Transfusion Reaction / Comment(s): got too much anesthetic with surgery once. per pt Past Psychological History: ADD/ADHD, Anxiety, Depression Smoking Status: Former smoker Past Alcohol Use History: Rare Past Drug Use History: None Reported - Past Family History Mother Family Medical History: Cancer, CVA/TIA, Hypertension Additional Family Medical History / Comment(s): open heart Brother(s) Family Medical History: Cancer Additional Family Medical History / Comment(s): lung with brain mets in remission Father Family Medical History: Congestive Heart Failure (CHF), COPD Additional Family Medical History / Comment(s): emphysema General Exam Limitations: no limitations General appearance: alert, in no apparent distress, anxious Head exam: Present: atraumatic, normocephalic Eye exam: Present: normal appearance, PERRL ENT exam: Present: mucous membranes dry Neck exam: Present: normal inspection. Absent: tenderness, meningismus Respiratory exam: Present: normal lung sounds bilaterally. Absent: respiratory distress, wheezes Cardiovascular Exam: Present: regular rate, normal rhythm GI/Abdominal exam: Present: soft. Absent: distended, tenderness, guarding, rebound Extremities exam: Present: normal inspection, normal capillary refill. Absent: pedal edema, calf tenderness Neurological exam: Present: alert, oriented X3, CN II-XII intact. Absent: motor sensory deficit Psychiatric exam: Present: depressed, anxious, flat affect Skin exam: Present: warm, dry, intact. Absent: cyanosis, diaphoretic Course Vital Signs 10/07/21 10/07/21 14:52 15:52 Temperature 98.1 F Pulse Rate 111 H 53 L Respiratory 20 18 Rate Blood Pressure 133/82 123/79 O2 Sat by Pulse 100 98 Oximetry EKG Findings - EKG Comments: EKG Findings:: EKG: Sinus tachycardia, left atrial enlargement, rate of 104, NM interval 141, QRS duration 87, QTC [address] segment elevation. Medical Decision Making - Medical Decision Making 51-year-old female with palpitations lightheadedness. Patient had been sent by primary care physician for evaluation. Workup was initiated including EKG which is sinus rhythm without ST segment elevation per chest x-ray shows hyperinflation without acute findings. Patient has a normal CBC, normal CMP, negative d-dimer, negative troponin, normal TSH. I did review the results both with the primary care physician Dr. Louie and the patient per patient is reassured and willing to undergo continued outpatient workup. Primary care agreeable with this plan. Strict return parameters are discussed. - Lab Data Result diagrams: 10/07/21 15:52 10/07/21 15:52 Lab Results 10/07/21 10/07/21 10/07/21 Range/Units 15:52 15:52 15:52 WBC 6.9 (3.8-10.6) k/uL RBC 4.24 (3.80-5.40) m/uL Hgb 13.4 (11.4-16.0) gm/dL Hct 40.4 (34.0-46.0) % MCV 95.4 (80.0-100.0) fL MCH 31.7 (25.0-35.0) pg MCHC 33.2 (31.0-37.0) g/dL RDW 12.4 (11.5-15.5) % Plt Count 402 (150-450) k/uL MPV 6.9 Neutrophils % 58 % Lymphocytes % 32 % Monocytes % 6 % Eosinophils % 0 % Basophils % 2 % Neutrophils # 4.0 (1.3-7.7) k/uL Lymphocytes # 2.2 (1.0-4.8) k/uL Monocytes # 0.4 (0-1.0) k/uL Eosinophils # 0.0 (0-0.7) k/uL Basophils # 0.1 (0-0.2) k/uL PT 10.0 (9.0-12.0) sec INR 0.9 (<1.2) APTT 24.4 (22.0-30.0) sec D-Dimer 0.21 (<0.60) mg/L FEU Sodium 137 (137-145) mmol/L Potassium 3.8 (3.5-5.1) mmol/L Chloride 106 (98-107) mmol/L Carbon Dioxide 23 (22-30) mmol/L Anion Gap 8 mmol/L BUN 12 (7-17) mg/dL Creatinine 0.70 (0.52-1.04) mg/dL Est GFR (CKD-EPI)AfAm >90 (>60 ml/min/1.73 sqM) Est GFR (CKD-EPI)NonAf >90 (>60 ml/min/1.73 sqM) Glucose 96 (74-99) mg/dL Calcium 9.6 (8.4-10.2) mg/dL Magnesium 2.0 (1.6-2.3) mg/dL Total Bilirubin 0.6 (0.2-1.3) mg/dL AST 25 (14-36) U/L ALT 14 (4-34) U/L Alkaline Phosphatase 85 (38-126) U/L Troponin I (0.000-0.034) ng/mL Total Protein 7.0 (6.3-8.2) g/dL Albumin 4.5 (3.5-5.0) g/dL TSH 0.479 (0.465-4.680) mIU/L 10/07/21 Range/Units 15:52 WBC (3.8-10.6) k/uL RBC (3.80-5.40) m/uL Hgb (11.4-16.0) gm/dL Hct (34.0-46.0) % MCV (80.0-100.0) fL MCH (25.0-35.0) pg MCHC (31.0-37.0) g/dL RDW (11.5-15.5) % Plt Count (150-450) k/uL MPV Neutrophils % % Lymphocytes % % Monocytes % % Eosinophils % % Basophils % % Neutrophils # (1.3-7.7) k/uL Lymphocytes # (1.0-4.8) k/uL Monocytes # (0-1.0) k/uL Eosinophils # (0-0.7) k/uL Basophils # (0-0.2) k/uL PT (9.0-12.0) sec INR (<1.2) APTT (22.0-30.0) sec D-Dimer (<0.60) mg/L FEU Sodium (137-145) mmol/L Potassium (3.5-5.1) mmol/L Chloride (98-107) mmol/L Carbon Dioxide (22-30) mmol/L Anion Gap mmol/L BUN (7-17) mg/dL Creatinine (0.52-1.04) mg/dL Est GFR (CKD-EPI)AfAm (>60 ml/min/1.73 sqM) Est GFR (CKD-EPI)NonAf (>60 ml/min/1.73 sqM) Glucose (74-99) mg/dL Calcium (8.4-10.2) mg/dL Magnesium (1.6-2.3) mg/dL Total Bilirubin (0.2-1.3) mg/dL AST (14-36) U/L ALT (4-34) U/L Alkaline Phosphatase (38-126) U/L Troponin I <0.012 (0.000-0.034) ng/mL Total Protein (6.3-8.2) g/dL Albumin (3.5-5.0) g/dL TSH (0.465-4.680) mIU/L Disposition Clinical Impression: Palpitations Disposition: HOME SELF-CARE Condition: Good Instructions (If sedation given, give patient instructions): Heart Palpitations (ED) Is patient prescribed a controlled substance at d/c from ED?: No Referrals: Jayden Louie MD [Primary Care Provider] - 1-2 days Time of Disposition: 17:27
--- NOTE | 2021-10-07 15:49 | XR ---
EXAMINATION TYPE: XR chest 2V DATE OF EXAM: 10/07/2021 COMPARISON: 12/19/2019 HISTORY: 51-year-old female dysrhythmia, generalized weakness and palpitations for 4 days TECHNIQUE: AP and lateral views FINDINGS: Heart normal size. Aorta and pulmonary vasculature within normal limits. Mild hyperinflation with inc reased retrosternal clear space. No consolidation or pleural effusion. Mild degenerative disc disease midthoracic spine. IMPRESSION: Hyperinflation may relate to depth of inspiration or underlying emphysema. Otherwise, no acute cardio pulmonary process.
[2021-10-07 15:55] VITALS: RESP 18
[2021-10-07 16:12] LABS: Basophils # (A) 0.1 k/uL (0-0.2); Basophils % (A) 2 %; Eosinophils % (A) 0 %; HCT 40.4 % (34.0-46.0); HGB 13.4 gm/dL (11.4-16.0); Lymphocytes # (A) 2.2 k/uL (1.0-4.8); Lymphocytes % (A) 32 %; MCH 31.7 pg (25.0-35.0); MCHC 33.2 g/dL (31.0-37.0); MCV 95.4 fL (80.0-100.0); Mean Platelet Volume 6.9; Monocytes # (A) 0.4 k/uL (0-1.0); Monocytes % (A) 6 %; Neutrophils % (A) 58 %; Platelet Count 402 k/uL (150-450); RBC 4.24 m/uL (3.80-5.40); RDW 12.4 % (11.5-15.5); WBC 6.9 k/uL (3.8-10.6)
[2021-10-07 16:22] LABS: ALT 14 U/L (4-34); AST 25 U/L (14-36); African American GFR (CKD) >90 (>60 ml/min/1.73 sqM); Albumin 4.5 g/dL (3.5-5.0); Alkaline Phosphatase 85 U/L (38-126); Anion Gap 8 mmol/L; Blood Urea Nitrogen 12 mg/dL (7-17); Calcium 9.6 mg/dL (8.4-10.2); Carbon Dioxide 23 mmol/L (22-30); Chloride 106 mmol/L (98-107); Glucose 96 mg/dL (74-99); Non-African American GFR(CKD) >90 (>60 ml/min/1.73 sqM); Potassium 3.8 mmol/L (3.5-5.1); Sodium 137 mmol/L (137-145); Total Bilirubin 0.6 mg/dL (0.2-1.3)
[2021-10-07 16:32] LABS: INR 0.9 (<1.2)
[2021-10-07 16:33] LABS: Partial Thromboplastin Time 24.4 sec (22.0-30.0)
[2021-10-07 17:37] VITALS: BP 110/87; PULSE 60
== END 2021-10-07 17:40 | disposition home or self-care (01) ==
LOC: EC 14:49
DX: R00.2 Palpitations (principal); J44.9 Chronic obstructive pulmonary disease, unspecified; Z87.891 Personal history of nicotine dependence
CPT/HCPCS: 36415; 71046; 80053; 83735; 84443; 84484; 85025; 85379; 85610; 85730

== ENCOUNTER → 2021-11-09 | Outpatient (CLI) | payer BC ==
--- NOTE | 2021-11-09 10:48 | CA ---
Exercise Stress Test Report Name: Tavia Tesfaye Exam Date: 11/09/2021 09:17 Exam Location: [place] Stress Ht (in): 67 Wt (lb): 160 BSA: 1.84 Ordering Phys: Delroy Camacho MD Referring Phys: DELROY CAMACHO,, Technologist: Gadiel Butler Age: 51 Gender: F : 1970 Procedure CPT: Indications: R07.9 CHEST PAIN ICD-10 Codes: Patient History: Medications: lamotrigine, vyvanse, ondanstron, alprazolam, armour, venlafaxine Meds past 24 hrs: Pretest Chest Pain: STRESS TEST Protocol Exercise Duration (min:sec): 10:[address] Depressions (mm): Angina Score: Jacobson Score: Resting HR (bpm): 90 Peak HR (bpm): 149 Resting BP (mmHg): 119 / 80 Peak BP (mmHg): 159 / 78 MPHR: 169 Target HR: 144 % MPHR: 88 METS: 13.0 Total Dose: Peak Dose: Atropine: Double Product: 07376 BP Response: Stress Termination: Reached target heart rate Stress Symptoms: no symptoms Stress Summary: ECG ANALYSIS Resting ECG: Stress ECG: No significant ST segment depression CONCLUSIONS Good exercise tolerance Negative stress test by EKG criteria Cardiolite portion of the stress test will be reported separately Dr. Surjit Watts MD (Electronically Signed) Final Date: 09 November 2021 10:47
--- NOTE | 2021-11-09 13:00 | NM ---
EXAMINATION TYPE: NM stress cardiolite complete DATE OF EXAM: 11/09/2021 COMPARISON: NONE HISTORY: Chest pain TECHNIQUE: After the intravenous administration of 9.54 mCi Tc 99m Sestamibi - Rest images obtained 45 minutes post injection. The patient exercised using a JAH protocol and 1 minute prior to peak exercise was injected with 24.875 mCi Tc 99m Sestamibi - Stress images obtained 13 minutes post injec tion. FINDINGS: Targeted heart rate was achieved during performance of the study. Review of stress and rest SPECT benito ges demonstrates no distinct perfusion abnormality. Gated analysis shows normal wall motion with an estimated left ventricular ejection fraction of 50 %. IMPRESSION: No scintigraphic evidence for reversible ischemia
== END | disposition home or self-care (01) ==
LOC: RADNMMAIN 07:49
PROVIDERS: ATTEND Family Medicine
DX: R07.9 Chest pain, unspecified (principal)
CPT/HCPCS: 93017; 78452; A9500

== ENCOUNTER → 2022-01-12 | Outpatient (CLI) | payer BC | END | disposition home or self-care (01) | LOC: LABWHC1 14:57 | PROVIDERS: ATTEND Family Medicine | DX: I10 Essential (primary) hypertension (principal); E16.2 Hypoglycemia, unspecified | CPT/HCPCS: 36415; 83036; 84681 ==

== ENCOUNTER → 2022-01-12 | Outpatient (CLI) | payer BC ==
[2022-01-13 05:04] LABS: T4, Free (Free Thyroxine) 0.91 ng/dL (0.800-1.800)
== END | disposition home or self-care (01) ==
LOC: LABWHC1 14:51
PROVIDERS: ATTEND Internal Medicine
DX: E06.3 Autoimmune thyroiditis (principal); E55.9 Vitamin D deficiency, unspecified
CPT/HCPCS: 36415; 82306; 84439; 84443

== ENCOUNTER → 2022-06-16 | Outpatient (CLI) | payer BC ==
[2022-06-16 18:40] LABS: HCT 43.1 % (37.2-46.3); HGB 13.9 g/dL (12.0-15.0); MCH 31.9 pg (27.0-32.0); MCHC 32.3 g/dL (32.0-37.0); MCV 98.9 fL (80.0-97.0); Mean Platelet Volume 9.8 fL (9.5-12.2); NRBC Per 100 WBC 0 /100 WBCS (0.0-0.0); Platelet Count 353 X 10*3/uL (140-440); RBC 4.36 X 10*6/uL (4.10-5.20); RDW 12.6 % (11.5-14.5)
[2022-06-16 19:15] LABS: ALT 14 U/L (8-44); AST 20 U/L (13-35); African American GFR (CKD) 98.2 (60.0-200.0); Albumin 4.9 g/dL (3.8-4.9); Albumin/Globulin Ratio 2.23 (1.60-3.17); Alkaline Phosphatase 103 U/L (41-126); Blood Urea Nitrogen 12.4 mg/dL (9.0-27.0); Calcium 9.4 mg/dL (8.7-10.3); Carbon Dioxide 22.6 mmol/L (20.0-27.5); Chloride 103 mmol/L (96-109); Chol/HDL Ratio 4.23 Ratio; Globulin 2.2 g/dL (1.6-3.3); Glucose 81 mg/dL (70-110); LDL Cholesterol,Calculated 132.7 mg/dL (0.0-131.0); Non-African American GFR(CKD) 84.8 (60.0-200.0); Potassium 4.3 mmol/L (3.5-5.5); Sodium 139 mmol/L (135-145); Total Protein 7.1 g/dL (6.2-8.2)
== END | disposition home or self-care (01) ==
LOC: LABWHC1 10:42
PROVIDERS: ATTEND Family Medicine
DX: E06.3 Autoimmune thyroiditis (principal); F32.9 Major depressive disorder, single episode, unspecified; Z79.899 Other long term (current) drug therapy
CPT/HCPCS: 36415; 80053; 80061; 83036; 85027

== ENCOUNTER → 2022-09-15 | Outpatient (CLI) | payer BC ==
[2022-09-15 20:16] LABS: T4, Free (Free Thyroxine) 0.87 ng/dL (0.80-1.80)
== END | disposition home or self-care (01) ==
LOC: LABWHC1 11:45
PROVIDERS: ATTEND Internal Medicine
DX: E06.3 Autoimmune thyroiditis (principal)
CPT/HCPCS: 36415; 84439; 84443

== ENCOUNTER → 2023-11-28 | Outpatient (CLI) | payer MEDICARE, OTHER ==
--- NOTE | 2023-11-28 10:34 | CT ---
EXAMINATION TYPE: CT chest abdomen wo con DATE OF EXAM: 11/28/2023 COMPARISON: 12/10/2019. HISTORY: fall, anterior rib pain and left side to mid back rib pain CT DLP: 934 mGycm Automated exposure control for dose reduction was used. FINDINGS: There are displaced fractures involving the lateral left sixth, No pneumothorax. No consolidation. No pulmonary edema. Subsegmental groundglass changes bilateral raul gs most typical of atelectasis. Atherosclerotic change aorta. There is a small hiatal hernia. Mild coronary artery calcification. Ass essment for adenopathy limited by noncontrast technique. Borderline cardiomegaly. Assessment for organ injury limited by lack of contrast. Grossly the liver and spleen are homogeneous . Hypodense right renal lesion is indeterminate by noncontrast technique and incompletely evaluated. Borderline periaortic and retroperitoneal lymphadenopathy. There is hypertrophic and degenerative rachel nges of the spine. No free fluid within the abdomen. No free air. Adrenal glands normal morphology. N o hydronephrosis or nephrolithiasis. Pancreas grossly within normal limits by noncontrast technique. Bowel gas pattern nonspecific. Shoulder arthropathy. There is a 3 mm pulmonary micronodule right upper lobe image 32 too small to characterize. IMPRESSION: 1. Acute mildly displaced fractures left sixth, seventh and eighth ribs. 2. No sizable pneumothorax. 3. Right upper lobe pulmonary micronodule too small to characterize but likely benign. 12 month follo w-up CT scan could be obtained according to Fleischner Society guidelines as clinically warranted.
== END | disposition home or self-care (01) ==
LOC: RADCTMAIN 09:59
PROVIDERS: ATTEND Family Medicine
DX: S39.91XA Unspecified injury of abdomen, initial encounter
CPT/HCPCS: 71250; 74150

== ENCOUNTER → 2023-12-26 | Outpatient (CLI) | payer MEDICARE ==
--- NOTE | 2023-12-26 18:10 | CT ---
EXAMINATION TYPE: CT chest abdomen w con DATE OF EXAM: 12/26/2023 COMPARISON: 11/28/2023 HISTORY: Left sided posterior rib pain after fall x7 weeks ago. CT DLP: 741.2 mGycm CONTRAST: CT scan of the chest, abdomen and pelvis is performed without Oral Contrast and with IV Contrast, pat ient injected with 100ml mL of Isovue 300. CT Chest: LUNGS: The lungs are clear and free of infiltrate or atelectasis. Nodular density right upper lobe me asuring up to 3 mm image 32 unchanged from prior study. No additional nodules are seen. No pleural ef fusion or CT evidence of interstitial lung disease. MEDIASTINUM: Thoracic aorta is of normal caliber. The heart is not enlarged. No evidence for media stinal mass or adenopathy. HILAR STRUCTURES: No evidence for mass. No hilar adenopathy is appreciated. OTHER: Healed fractures of left ribs 6, 7 and 8. No evidence of pneumothorax. CONTRAST CT ABDOMEN FINDINGS: LIVER/GB: No calcified gallstones. No space occupying hepatic lesion. Biliary tree is of normal ca liber. PANCREAS: No inflammation. No distinct mass. SPLEEN: No splenic enlargement. No lesion seen. ADRENALS: No nodule. No thickening. KIDNEYS/BLADDER: No hydronephrosis. No nephrolithiasis. No distinct renal mass. BOWEL: Visualized bowel loops are grossly unremarkable. LYMPH NODES: No greater than 1cm abdominal or pelvic lymph nodes are appreciated. AORTA: No significant abnormality. OSSEOUS STRUCTURES: No significant abnormality is seen. OTHER: No significant additional abnormality is seen. IMPRESSION: 1. Stable right upper lobe pulmonary nodule. 12 month follow-up CT scan could be obtained according t o Fleischner Society guidelines as clinically warranted. 2. Healed left-sided rib fractures. [facility], , 12/26/2023 6:08 PM
== END | disposition home or self-care (01) ==
LOC: RADCTMAIN 07:00
PROVIDERS: ATTEND Family Medicine
CPT/HCPCS: 71260; 74160

== ENCOUNTER → 2024-06-02 | Outpatient (CLI) | payer MEDICARE ==
--- NOTE | 2024-06-02 15:43 | XR ---
EXAMINATION TYPE: XR Hip Complete LT DATE OF EXAM: 06/02/2024 3:31 PM INDICATION: Patient age:Female; 54 years old; Reason for study: M25.522 Pain Left hip M25.552 Pain left elbow; PHH. pain COMPARISON: None. TECHNIQUE: The left hip was examined in the frontal and lateral projections . FINDINGS: No evidence of any acute osseous pathology, joint dislocation, or soft tissue swelling. No significant degenerative changes. A few pelvic phleboliths identified. IMPRESSION: No acute osseous pathology. [facility], , 06/02/2024 3:41 PM
--- NOTE | 2024-06-02 15:44 | XR ---
EXAMINATION TYPE: XR elbow complete LT DATE OF EXAM: 06/02/2024 3:31 PM INDICATION: Patient age:Female; 54 years old; Reason for study: M25.522 Pain Left hip M25.552 Pain left elbow; PHH. pain COMPARISON: None TECHNIQUE: The left elbow was examined in AP, lateral, and oblique projections. FINDINGS: No evidence of any acute osseous pathology, joint dislocation, or soft tissue swelling is n oted. No evidence of joint effusion is present. IMPRESSION: No evidence of acute fracture. [facility], , 06/02/2024 3:41 PM
== END | disposition home or self-care (01) ==
LOC: RADXRMAIN 15:09
PROVIDERS: ATTEND Family Medicine
DX: M25.522 Pain in left elbow (principal); M25.552 Pain in left hip
CPT/HCPCS: 73502

== ENCOUNTER → 2024-06-09 | Outpatient (CLI) | payer MEDICARE ==
--- NOTE | 2024-06-09 11:03 | CT ---
EXAMINATION TYPE: CT chest w con DATE OF EXAM: 06/09/2024 COMPARISON: CT chest December 26, 2023 CLINICAL INDICATION: Female, 54 years old with history of R06.02 SOB, SOB, prolonged exposure to dryw all dust, hx COPD. TECHNIQUE: CT scan of the thorax is performed following with IV Contrast, patient injected with 100 mL of Isovue 300. CT DLP: 319.30 mGycm. Automated Exposure Control for Dose Reduction was Utilized. FINDINGS: LUNGS: There is stable 6 x 4 mm right middle lung pulmonary nodule axial image 31 redemonstrated. No new acute focal consolidation or suspicious groundglass opacity. No pleural effusion. HEART: Size within normal limits. No significant coronary artery calcifications. MEDIASTINUM: There are no greater than 1 cm hilar or mediastinal lymph nodes. No pericardial effusi on is seen. OTHER: No additional significant abnormality is seen. IMPRESSION: No acute pulmonary process. [facility], , 06/09/2024 11:01 AM
== END | disposition home or self-care (01) ==
LOC: RADCTMAIN 08:19
PROVIDERS: ATTEND Family Medicine
DX: R91.1 Solitary pulmonary nodule (principal)
CPT/HCPCS: 71260; Q9967